=== PATIENT | female | born 1950 | race Caucasian/White ===

== ENCOUNTER 2016-09-19 18:47 | Emergency (ER) | payer BC, MEDICARE ==
[~2016-09-19] VITALS: Ht 160 cm; Wt 104.0 kg
[~2016-09-19 18:47] MED LIST: ALBU0.63 NEB; ALBUAER3 INH; OXYGENTANK NAS.CANULA; SYMB160A INH; SYNT112T PO; UMEC1INH INH; VERA240T16 PO; XARE15TA PO; XARE20TA PO
[2016-09-19 18:54] VITALS: BP 178/98; PULSE 74; RESP 28; TEMP 99.8; O2SAT 61; O2SAT 91
[2016-09-19] MEDS: RESP: ALBUTEROL 2.5 MG/IPRATROPIUM 0.5 MG NEB (SCH) INH (19:07)
--- NOTE | 2016-09-19 19:15 | PD ---
HPI Chief Complaint: Respiratory Distress Time Seen by Provider: 19:04 Travel History International Travel<30 days: No Contact w/Intl Traveler<30days: No Traveled to known affect area: No History of Present Illness HPI The patient is a 66-year-old female with a history of slight COPD who complains of shortness of breath since yesterday. She was put on Xarelto 6 weeks ago for multiple pulmonary emboli. She was doing fine until today when she suffered increasing shortness of breath. She states she has never been like this before. She was seen yesterday at an urgent care center and given a course of prednisone and Z-Galen. She denies any fever. She does not get oxygen at home. She used her nebulizer machine at home with both ipratropium and albuterol without significant relief. PFSH Past Medical History Asthma: Yes Cancer: No Cardiovascular Problems: Yes High Cholesterol: Yes COPD: Yes Endocrine: Yes Genitourinary: No Hypertension: Yes Immune Disorder: No Inguinal Hernia: Yes Musculoskeletal: No Neurologic: No Psychiatric: No Reproductive: No Respiratory: Yes Thyroid Disease: Yes (HYPOTHYROIDISM) Menopausal: Yes Past Surgical History Genitourinary Surgery: Yes (URETHRAL DIVERTICULUM 1981) Tonsillectomy: Yes Social History Alcohol Use: No Tobacco Use: No Substance Use: No Allergies-Medications (Allergen,Severity, Reaction): Coded Allergies: Bee Sting (Verified Allergy, Severe, Anaphylaxis, 09/19/16) Hctz (Verified Allergy, Severe, SEVERELY LOW POTASSIUM, 09/19/16) SHIVAM Inhibitors (Verified Allergy, Intermediate, COUGH, 09/19/16) Beta Blockers (Verified Allergy, Intermediate, CARDIAC ARRYTHMIA, 09/19/16) Penicillin (Verified Allergy, Intermediate, RASH, 09/19/16) Reported Meds & Prescriptions Reported Meds & Active Scripts Active Xarelto (Rivaroxaban) 20 Mg Tab 20 Mg PO DAILY Start after finishing 20 days of the xarelto 15 mg twice daily dosing. Reported Incruse Ellipta Inh (Umeclidinium [place] Inh) 0.0625 Mg/Act Inh 62.5 Mcg INH DAILY Albuterol Neb (Albuterol Sulfate) 0.63 Mg/3 Ml Neb 0.63 Mg NEB Q4HR NEB PRN Proair Hfa 8.5 GM Inh (Albuterol Sulfate) 90 Mcg/Act Aer 2 Puff INH Q4-6H PRN 108 mcg/actuation Symbicort Inh (Budesonide/Formoterol Fumarate) 160-4.5 Mcg/Act Aero 2 Puff INH Q12HR Synthroid (Levothyroxine Sodium) 112 Mcg Tab 112 Mcg PO DAILY Verapamil SR (Verapamil HCl) 240 Mg Tab 240 Mg PO DAILY Review of Systems Except as stated in HPI: all other systems reviewed are Neg Physical Exam Narrative GENERAL: The patient is alert, oriented 3 in moderate respiratory distress. Her vital signs show temperature 99.8, respiratory rate of 28, blood pressure 178/98 and oximetry 91% on room air. The oximetry increased to 95% on 2 L nasal cannula. SKIN: Warm and dry. HEAD: Atraumatic. Normocephalic. EYES: Pupils equal and round. No scleral icterus. No injection or drainage. ENT: No nasal bleeding or discharge. Mucous membranes pink and moist. NECK: Trachea midline. No JVD. CARDIOVASCULAR: Regular rate and rhythm. No murmur appreciated. RESPIRATORY: No accessory muscle use. Bilateral wheezes are heard in all lung burrell. Breath sounds equal bilaterally. GASTROINTESTINAL: Abdomen soft, non-tender, nondistended. Hepatic and splenic margins not palpable. MUSCULOSKELETAL: No obvious deformities. No clubbing. No cyanosis. No edema. NEUROLOGICAL: Awake and alert. No obvious cranial nerve deficits. Motor grossly within normal limits. Normal speech. PSYCHIATRIC: Appropriate mood and affect; insight and judgment normal. Data Data Last Documented VS Vital Signs Date Time Temp Pulse Resp B/P Pulse Ox O2 Delivery O2 Flow Rate FiO2 09/19/16 21:05 Nasal Cannula 2 09/19/16 20:19 95 09/19/16 20:10 89 24 152/84 09/19/16 18:54 99.8 Orders Albuterol-Ipratropium Neb (Duoneb Neb) (09/19/16 19:00) Chest, Pa & Lat (09/19/16 19:04) Complete Blood Count With Diff (09/19/16 19:16) Comprehensive Metabolic Panel (09/19/16 19:16) B-Type Natriuretic Peptide (09/19/16 19:16) Magnesium (Mg) (09/19/16 19:16) Arterial Blood Gas (Abg) (09/19/16 19:16) Urinalysis - C+S If Indicated (09/19/16 19:16) Iv Access Insert/Monitor (09/19/16 19:16) Ecg Monitoring (09/19/16 19:16) Oximetry (09/19/16 19:16) Oxygen Administration (09/19/16 19:16) Sodium Chloride 0.9% Flush (Ns Flush) (09/19/16 19:30) Electrocardiogram (09/19/16 19:16) Methylprednisolone So Succ Inj (Solumedr (09/19/16 19:30) Albuterol-Ipratropium Neb (Duoneb Neb) (09/19/16 20:30) Labs Laboratory Tests Test 09/19/16 09/19/16 19:20 19:45 White Blood Count 9.7 TH/MM3 Red Blood Count 4.60 MIL/MM3 Hemoglobin 13.3 GM/DL Hematocrit 38.6 % Mean Corpuscular Volume 83.9 FL Mean Corpuscular Hemoglobin 28.9 PG Mean Corpuscular Hemoglobin 34.4 % Concent Red Cell Distribution Width 15.5 % Platelet Count 287 TH/MM3 Mean Platelet Volume 8.5 FL Neutrophils (%) (Auto) 79.4 % Lymphocytes (%) (Auto) 13.4 % Monocytes (%) (Auto) 6.5 % Eosinophils (%) (Auto) 0.0 % Basophils (%) (Auto) 0.7 % Neutrophils # (Auto) 7.7 TH/MM3 Lymphocytes # (Auto) 1.3 TH/MM3 Monocytes # (Auto) 0.6 TH/MM3 Eosinophils # (Auto) 0.0 TH/MM3 Basophils # (Auto) 0.1 TH/MM3 CBC Comment DIFF FINAL Differential Comment Sodium Level 141 MEQ/L Potassium Level 4.5 MEQ/L Chloride Level 104 MEQ/L Carbon Dioxide Level 26.9 MEQ/L Anion Gap 10 MEQ/L Blood Urea Nitrogen 24 MG/DL Creatinine 1.00 MG/DL Estimat Glomerular Filtration 55 ML/MIN Rate Random Glucose 101 MG/DL Calcium Level 8.9 MG/DL Magnesium Level 2.3 MG/DL Total Bilirubin 0.4 MG/DL Aspartate Amino Transf 9 U/L (AST/SGOT) Alanine Aminotransferase 17 U/L (ALT/SGPT) Alkaline Phosphatase 89 U/L B-Type Natriuretic Peptide 72 PG/ML Total Protein 7.6 GM/DL Albumin 3.7 GM/DL Blood Gas Puncture Site RT BRACHIAL Blood Gas Patient Temperature 98.6 Blood Gas HCO3 22 mmol/L Blood Gas Base Excess -2.2 mmol/L Blood Gas Oxygen Saturation 93 % Arterial Blood pH 7.41 Arterial Blood Partial 35 mmHG Pressure CO2 Arterial Blood Partial 81 mmHG Pressure O2 Arterial Blood Oxygen Content 17.5 Vol % Arterial Blood 1.6 % Carboxyhemoglobin Arterial Blood Methemoglobin 1.4 % Blood Gas Hemoglobin 13.4 G/DL Oxygen Delivery Device ROOM AIR Blood Gas Inspired Oxygen 21 % MDM Medical Decision Making Medical Screen Exam Complete: Yes Emergency Medical Condition: Yes Medical Record Reviewed: Yes Interpretation(s) The complete metabolic profile shows a BUN of 24, GFR of 55 but is otherwise unremarkable. Magnesium level is normal and the BNP is normal. The CBC is normal except for 79% neutrophils. The chest x-ray shows hyperinflation consistent with COPD/asthma and minimal bibasilar subsegmental atelectasis but no infiltrate is identified. The blood gases on room air show pH 7.41, CO2 35, PO2 81 with O2 sat 93%. EKG shows sinus rhythm rate of [address] elevation or depression. Differential Diagnosis COPD with acute exacerbation, hypoxemia, pneumonia, bronchitis, exacerbation of pulmonary emboli Narrative Course Is now a 821 PM and the patient feels much better. She does want to go home. Except for a slightly low CO2, her blood gases are normal. The chest x-ray does not show any acute infiltrate. Auscultation of the patient's lungs at this time show only a few wheezes. She will get 1 more DuoNeb treatment and then she will be able to go home. She will continue the prednisone course in the Zithromax that was given to her at the urgent care center yesterday. She is to follow-up with her primary care physician next week. Diagnosis Primary Impression: COPD with acute exacerbation Additional Instructions: As we discussed, if you get worse, please return to emergency department. Follow-up with your primary care physician next week. Med/Other Pt SpecificInfo: No Change to Meds Disposition: 01 DISCHARGE HOME Condition: Stable Leandro Gifford MD Sep 19, 2016 19:15
[2016-09-19] MEDS ORDERED: methylPREDNISolone SOD SUCC 125 MG/2 ML VIAL IVP ONE (19:30)
[2016-09-19] MEDS ORDERED: SODIUM CHLORIDE 0.9% FLUSH 5 ML FLUSH IVF PRN (19:30)
[2016-09-19 19:38] LABS: AUTOMATED NEUTROPHIL # 7.7 TH/MM3 (1.8-7.7); BASOPHIL # 0.1 TH/MM3 (0-0.2); BASOPHIL % 0.7 % (0.0-2.0); HEMATOCRIT 38.6 % (35.0-46.0); HEMO FLAGS DIFF FINAL; LYMPH % 13.4 % (9.0-44.0); LYMPHOCYTE # 1.3 TH/MM3 (1.0-4.8); MEAN CELL VOLUME 83.9 FL (80.0-100.0); MEAN CORPUSCULAR HEMOGLOBIN 28.9 PG (27.0-34.0); MEAN CORPUSCULAR HGB CONC 34.4 % (32.0-36.0); MONO % 6.5 % (0.0-8.0); NEUT % 79.4 % (16.0-70.0); PLATELET COUNT 287 TH/MM3 (150-450); RED CELL DISTRIBUTION WIDTH 15.5 % (11.6-17.2); WHITE BLOOD COUNT 9.7 TH/MM3 (4.0-11.0)
[2016-09-19 19:46] LABS: CHLORIDE 104 MEQ/L (98-107); POTASSIUM 4.5 MEQ/L (3.5-5.1); SODIUM (NA) 141 MEQ/L (136-145)
[2016-09-19 19:49] LABS: ANION GAP 10 MEQ/L (5-15); BICARBONATE 26.9 MEQ/L (21.0-32.0); BLOOD UREA NITROGEN 24 MG/DL (7-18); MAGNESIUM 2.3 MG/DL (1.5-2.5)
[2016-09-19 19:52] LABS: ALT (GPT) 17 U/L (10-53); AST (GOT) 9 U/L (15-37); GLOMERULAR FILTRATION RATE 55 ML/MIN (>89)
[2016-09-19 19:54] LABS: BLOOD GAS BASE EXCESS -2.2 mmol/L (-2-2); BLOOD GAS CARBOXYHEMOGLOBIN 1.6 % (0-4); BLOOD GAS HCO3 22 mmol/L (22-26); BLOOD GAS METHEMOGLOBIN 1.4 % (0-2); BLOOD GAS O2 HGB SATURATION 93 % (90-100); BLOOD GAS OXYGEN CONTENT 17.5 Vol % (12.0-20.0); BLOOD GAS PCO2 35 mmHG (38-42); BLOOD GAS PO2 81 mmHG (61-120); BLOOD GAS TOTAL HGB 13.4 G/DL (12.0-16.0); CRITICAL VALUE NO; DRAW SITE RT BRACHIAL; FIO2 21 %; NUMBER OF ARTERIAL PUNCTURES 1; OXYGEN DEVICE ROOM AIR; STAT YES; TEMP CORR TO 98.6
[2016-09-19 19:54] LABS: TOTAL BILIRUBIN ADULT 0.4 MG/DL (0.2-1.0)
[2016-09-19 19:55] LABS: ALKALINE PHOSPHATASE 89 U/L (45-117)
--- NOTE | 2016-09-19 19:58 | RADHPO ---
EXAM DATE/TIME: 09/19/2016 19:39 [facility] COMPARISON: CHEST SINGLE AP, August 07, 2016, 2:51. INDICATIONS : Shortness of breath. MEDICAL HISTORY : Chronic obstructive pulmonary disease. Hypothyroidism. Hypertension. Hernia, inguinal. Asthma. SURGICAL HISTORY : None. ENCOUNTER: Initial ACUITY: 1 day PAIN SCORE: 5/10 LOCATION: Bilateral chest FINDINGS: PA and lateral views of the chest demonstrates hyperinflation which can be seen with CO PD. Minimal bibasilar subsegmental atelectasis. No infiltrates are seen. Heart is normal in size. T he mediastinal contours are unremarkable. Osseous structures are intact. CONCLUSION: Hyperinflation which can be seen with COPD/asthma. Minimal bibasilar subsegmenta l atelectasis. Raymond Malhotra MD on September 19, 2016 at 19:54 Board Certified Radiologist. This report was verified electronically.
[2016-09-19 20:10] VITALS: BP 152/84; PULSE 89; RESP 24; O2SAT 96
[2016-09-19] MEDS ORDERED: RESP: ALBUTEROL 2.5 MG/IPRATROPIUM 0.5 MG NEB (SCH) INH ONE (20:30)
[2016-09-19 21:05] VITALS: BP 165/85; PULSE 112; RESP 20; O2SAT 92
[2016-09-19 23:01] VITALS: BP 172/78
--- NOTE | 2016-09-21 07:01 | EKG ---
Date Performed: 09/19/2016 Time Performed: 18:57:18 PTAGE: 66 years EKG: Sinus rhythm with PVC(s) Inferior T wave changes are nonspecific Borderline ECG PREVIOUS TRACING : 08/07/2016 02.16 Compared to prior tracing no significant change DOCTOR: Bryan Berger Interpretating Date/Time 09/21/2016 06:59:16
== END 2016-09-19 23:15 | disposition home or self-care (01) ==
LOC: PHED 18:47
DX: J44.1 Chronic obstructive pulmonary disease with (acute) exacerbation (principal); Z86.711 Personal history of pulmonary embolism; Z79.01 Long term (current) use of anticoagulants; E78.00 Pure hypercholesterolemia, unspecified; I10 Essential (primary) hypertension; E03.9 Hypothyroidism, unspecified
CPT/HCPCS: 36600; 71020; 80053; 82805; 83735; 83880; 85025; 93005; 94640; 94664; 96374; 99285; J2930

== ENCOUNTER 2016-09-25 12:26 | Inpatient (IN) | payer MEDICARE ==
[~2016-09-25] VITALS: Ht 160 cm; Wt 104.5 kg
[2016-09-25] VITALS (9 sets, daily range): BP systolic 169–206; BP diastolic 87–101; PULSE 73–93; RESP 20; TEMP 98.2–99.5; O2SAT 88–95
[~2016-09-25 12:26] MED LIST changes: -OXYGENTANK NAS.CANULA; -XARE15TA PO
[2016-09-25] MEDS ORDERED: methylPREDNISolone SOD SUCC 125 MG/2 ML VIAL IVP ONE (12:45)
[2016-09-25] MEDS ORDERED: RESP: BUDESONIDE 0.5 MG/2 ML NEB NEB ONE (12:45)
[2016-09-25] MEDS ORDERED: SODIUM CHLORIDE 0.9% FLUSH 5 ML FLUSH IVF PRN ×2 (12:45→15:15)
--- NOTE | 2016-09-25 12:49 | PD ---
HPI Chief Complaint: Respiratory Symptoms Time Seen by Provider: 12:45 Travel History International Travel<30 days: No Contact w/Intl Traveler<30days: No Traveled to known affect area: No History of Present Illness HPI Patient is a 66-year-old female presenting in the department for evaluation of shortness of breath. Patient states it's gotten progressively worse over the last week, she's been to urgent care center as well as this emergency department. She was prescribed azithromycin, steroids, doxycycline. She reports a history of asthma and states she's been compliant with her treatment. She had recently been diagnosed with bilateral pulmonary embolisms and is currently taking swell to. She reports compliance with this medication. Patient's past medical history includes hypertension as well. PFSH Past Medical History Hx Anticoagulant Therapy: Yes (XARELTO ) Asthma: Yes Cancer: No Cardiovascular Problems: Yes High Cholesterol: Yes COPD: Yes Deep Vein Thrombosis: Yes (pe) Endocrine: Yes Genitourinary: No Hypertension: Yes Immune Disorder: No Inguinal Hernia: Yes Musculoskeletal: No Neurologic: No Psychiatric: No Reproductive: No Respiratory: Yes Thyroid Disease: Yes (HYPOTHYROIDISM) ?: Not Menopausal: Yes Past Surgical History Genitourinary Surgery: Yes (URETHRAL DIVERTICULUM 1981) Tonsillectomy: Yes Other Surgery: Yes Social History Alcohol Use: Yes (occ) Tobacco Use: No Substance Use: No Allergies-Medications (Allergen,Severity, Reaction): Coded Allergies: Bee Sting (Verified Allergy, Severe, Anaphylaxis, 09/25/16) Hctz (Verified Allergy, Severe, SEVERELY LOW POTASSIUM, 09/25/16) SHIVAM Inhibitors (Verified Allergy, Intermediate, COUGH, 09/25/16) Beta Blockers (Verified Allergy, Intermediate, CARDIAC ARRYTHMIA, 09/25/16) Penicillin (Verified Allergy, Intermediate, RASH, 09/25/16) Reported Meds & Prescriptions Reported Meds & Active Scripts Active Xarelto (Rivaroxaban) 20 Mg Tab 20 Mg PO DAILY Start after finishing 20 days of the xarelto 15 mg twice daily dosing. Reported Vibramycin (Doxycycline Hyclate) 100 Mg Cap 100 Mg PO BID Doxycycline 40 Mg Cap 40 Mg PO DAILY Prednisone 20 Mg Tab 60 Mg PO DAILY Take 40 mg (2 tablets) daily for 5 days Incruse Ellipta Inh (Umeclidinium [place] Inh) 0.0625 Mg/Act Inh 62.5 Mcg INH DAILY Albuterol Neb (Albuterol Sulfate) 0.63 Mg/3 Ml Neb 0.63 Mg NEB Q4HR NEB PRN Proair Hfa 8.5 GM Inh (Albuterol Sulfate) 90 Mcg/Act Aer 2 Puff INH Q4-6H PRN 108 mcg/actuation Symbicort Inh (Budesonide/Formoterol Fumarate) 160-4.5 Mcg/Act Aero 2 Puff INH Q12HR Synthroid (Levothyroxine Sodium) 112 Mcg Tab 112 Mcg PO DAILY Verapamil SR (Verapamil HCl) 240 Mg Tab 240 Mg PO DAILY Review of Systems Except as stated in HPI: all other systems reviewed are Neg General / Constitutional: No: Fever, Chills HENT: No: Headaches, Lightheadedness Cardiovascular: Positive: Diaphoresis, No: Chest Pain or Discomfort Respiratory: Positive: Cough, Shortness of Breath, Wheezing, Orthopnea, Pleuritic Pain Gastrointestinal: No: Nausea, Vomiting, Abdominal Pain Musculoskeletal: No: Myalgias Neurologic: Positive: Weakness, No: Change in Mentation Physical Exam Narrative GENERAL: Obese, well-developed, alert female. SKIN: Warm and dry. Skin is flushed, patient is diaphoretic. HEAD: Atraumatic. Normocephalic. EYES: Pupils equal and round. No scleral icterus. No injection or drainage. ENT: No nasal bleeding or discharge. Mucous membranes pink and moist. NECK: Trachea midline. No JVD. CARDIOVASCULAR: Regular rate and rhythm. No murmur appreciated. RESPIRATORY: Tachypneic, increased work of breathing, significant expiratory wheezing noted throughout lung burrell. GASTROINTESTINAL: Abdomen soft, non-tender, nondistended. Hepatic and splenic margins not palpable. MUSCULOSKELETAL: No obvious deformities. No clubbing. No cyanosis. 1+ edema to bilateral lower extremities. NEUROLOGICAL: Awake and alert. No obvious cranial nerve deficits. Motor grossly within normal limits. Normal speech. PSYCHIATRIC: Appropriate mood and affect; insight and judgment normal. Data Data Last Documented VS Vital Signs Date Time Temp Pulse Resp B/P Pulse Ox O2 Delivery O2 Flow Rate FiO2 09/25/16 14:48 83 20 206/94 93 Nasal Cannula 3 09/25/16 12:30 99.5 Orders Complete Blood Count With Diff (09/25/16 12:39) Comprehensive Metabolic Panel (09/25/16 12:39) B-Type Natriuretic Peptide (09/25/16 12:39) Magnesium (Mg) (09/25/16 12:39) Ckmb (Isoenzyme) Profile (09/25/16 12:39) Troponin I (09/25/16 12:39) Arterial Blood Gas (Abg) (09/25/16 12:39) Iv Access Insert/Monitor (09/25/16 12:39) Electrocardiogram (09/25/16 12:39) Ecg Monitoring (09/25/16 12:39) Oximetry (09/25/16 12:39) Oxygen Administration (09/25/16 12:39) Chest, Pa & Lat (09/25/16 12:39) Ct Pulmonary Angiogram (09/25/16 12:39) Sodium Chloride 0.9% Flush (Ns Flush) (09/25/16 12:45) Methylprednisolone So Succ Inj (Solumedr (09/25/16 12:45) Albuterol-Ipratropium Neb (Duoneb Neb) (09/25/16 12:45) Budesonide Neb (Pulmicort Respule Neb) (09/25/16 12:45) CKMB (09/25/16 13:00) CKMB% (09/25/16 13:00) Act Partial Throm Time (Ptt) (09/25/16 13:35) Prothrombin Time / Inr (Pt) (09/25/16 13:35) Iohexol 350 Inj (Omnipaque 350 Inj) (09/25/16 14:24) Pneumococcal Urinary Antigen (09/25/16 14:28) Influenzae A/B Antigen (09/25/16 14:28) Legionella Urinary Antigen (09/25/16 14:28) Sputum Culture And Gram Stain (09/25/16 14:28) Guaifen-Cod 200-20 Mg/10ml Liq (Robituss (09/25/16 14:30) Admit Order (Ed Use Only) (09/25/16 15:02) Labs Laboratory Tests Test 09/25/16 09/25/16 12:47 13:00 Blood Gas Puncture Site LT RADIAL Blood Gas Patient Temperature 98.6 Blood Gas HCO3 24 mmol/L Blood Gas Base Excess 0.8 mmol/L Blood Gas Oxygen Saturation 94 % Arterial Blood pH 7.44 Arterial Blood Partial 36 mmHG Pressure CO2 Arterial Blood Partial 83 mmHG Pressure O2 Arterial Blood Oxygen Content 17.6 Vol % Arterial Blood 1.6 % Carboxyhemoglobin Arterial Blood Methemoglobin 1.3 % Blood Gas Hemoglobin 13.3 G/DL Oxygen Delivery Device NASAL CANNULA Blood Gas Liter Flow 2 L/M White Blood Count 16.4 TH/MM3 Red Blood Count 4.68 MIL/MM3 Hemoglobin 13.2 GM/DL Hematocrit 39.3 % Mean Corpuscular Volume 84.0 FL Mean Corpuscular Hemoglobin 28.2 PG Mean Corpuscular Hemoglobin 33.6 % Concent Red Cell Distribution Width 15.1 % Platelet Count 364 TH/MM3 Mean Platelet Volume 8.3 FL Neutrophils (%) (Auto) 73.2 % Lymphocytes (%) (Auto) 16.5 % Monocytes (%) (Auto) 7.5 % Eosinophils (%) (Auto) 0.4 % Basophils (%) (Auto) 2.4 % Neutrophils # (Auto) 12.0 TH/MM3 Lymphocytes # (Auto) 2.7 TH/MM3 Monocytes # (Auto) 1.2 TH/MM3 Eosinophils # (Auto) 0.1 TH/MM3 Basophils # (Auto) 0.4 TH/MM3 CBC Comment DIFF FINAL Differential Comment Prothrombin Time 14.1 SEC Prothromb Time International 1.3 RATIO Ratio Activated Partial 28.9 SEC Thromboplast Time Sodium Level 140 MEQ/L Potassium Level 3.8 MEQ/L Chloride Level 104 MEQ/L Carbon Dioxide Level 26.3 MEQ/L Anion Gap 10 MEQ/L Blood Urea Nitrogen 22 MG/DL Creatinine 0.93 MG/DL Estimat Glomerular Filtration 60 ML/MIN Rate Random Glucose 83 MG/DL Calcium Level 8.5 MG/DL Magnesium Level 2.2 MG/DL Total Bilirubin 0.5 MG/DL Aspartate Amino Transf 7 U/L (AST/SGOT) Alanine Aminotransferase 17 U/L (ALT/SGPT) Alkaline Phosphatase 79 U/L Total Creatine Kinase 132 U/L Creatine Kinase MB 1.0 NG/ML Troponin I LESS THAN 0.02 NG/ML B-Type Natriuretic Peptide 64 PG/ML Total Protein 7.4 GM/DL Albumin 3.4 GM/DL MDM Medical Decision Making Medical Screen Exam Complete: Yes Emergency Medical Condition: Yes Interpretation(s) Vital Signs Date Time Temp Pulse Resp B/P Pulse Ox O2 Delivery O2 Flow Rate FiO2 09/25/16 12:30 99.5 92 20 190/101 92 Differential Diagnosis COPD exacerbation versus bronchitis versus pneumonia versus pulmonary embolism versus other Narrative Course Patient is 66-year-old female presenting to emergency Department with increasing shortness of breath over the last week. Patient has been on azithromycin and doxycycline as well as a steroid pack and nebulizer treatments with no improvement of her symptoms. The only diagnosis of pulmonary embolisms and reports compliance with her anticoagulation., Imaging, medications ordered and pending. Patient placed on O2 at 2 L, ABG ordered, respiratory at bedside. Chest x-ray shows no acute disease, a CT pulmonary angiogram negative for pulmonary embolism. CBC shows a mildly elevated white count with left shift. This could be attributed partially to recent steroid use. Chemistry shows a mildly elevated BUN at 22, troponin is negative, BNP is 64. Patient reports improvement in her symptoms however she is still on oxygen, and is maintaining more of a tripod position in order to breathe easier. At this time patient has attempted outpatient therapy and failed. She was hypoxic on arrival, it would benefit her to be admitted under observation at minimum to optimize respiratory status. Dr. Ledesma accepted admission. Patient is agreeable. Diagnosis Primary Impression: COPD with acute exacerbation Additional Impression: Hypoxia Admitting Information Admitting Physician Requests: Admit Condition: Stable Sarah Carrion Sep 25, 2016 12:49
[2016-09-25] MEDS: RESP: ALBUTEROL 2.5 MG/IPRATROPIUM 0.5 MG NEB (SCH) INH ×2 (12:51→19:30)
[2016-09-25 12:55] LABS: BLOOD GAS BASE EXCESS 0.8 mmol/L (-2-2); BLOOD GAS CARBOXYHEMOGLOBIN 1.6 % (0-4); BLOOD GAS HCO3 24 mmol/L (22-26); BLOOD GAS METHEMOGLOBIN 1.3 % (0-2); BLOOD GAS O2 HGB SATURATION 94 % (90-100); BLOOD GAS OXYGEN CONTENT 17.6 Vol % (12.0-20.0); BLOOD GAS PCO2 36 mmHG (38-42); BLOOD GAS PO2 83 mmHG (61-120); BLOOD GAS TOTAL HGB 13.3 G/DL (12.0-16.0); CRITICAL VALUE NO; OXYGEN DEVICE NASAL CANNULA; TEMP CORR TO 98.6
[2016-09-25 12:56] LABS: DRAW SITE LT RADIAL; LITER FLOW 2 L/M; NUMBER OF ARTERIAL PUNCTURES 1; STAT YES; ULNAR PULSE PRESENT
[2016-09-25] MEDS ORDERED: PRED20 PO (13:05)
[2016-09-25] MEDS ORDERED: VIBR100C PO (13:05)
[2016-09-25] MEDS ORDERED: DOXY1CAP74 PO (13:05)
[2016-09-25 13:08] LABS: BASOPHIL # 0.4 TH/MM3 (0-0.2); BASOPHIL % 2.4 % (0.0-2.0); EOSINOPHIL # 0.1 TH/MM3 (0-0.4); EOSINOPHIL % 0.4 % (0.0-4.0); HEMATOCRIT 39.3 % (35.0-46.0); LYMPH % 16.5 % (9.0-44.0); LYMPHOCYTE # 2.7 TH/MM3 (1.0-4.8); MEAN CORPUSCULAR HEMOGLOBIN 28.2 PG (27.0-34.0); MEAN CORPUSCULAR HGB CONC 33.6 % (32.0-36.0); MONO % 7.5 % (0.0-8.0); NEUT % 73.2 % (16.0-70.0); PLATELET COUNT 364 TH/MM3 (150-450); RED BLOOD COUNT 4.68 MIL/MM3 (4.00-5.30); RED CELL DISTRIBUTION WIDTH 15.1 % (11.6-17.2); WHITE BLOOD COUNT 16.4 TH/MM3 (4.0-11.0)
[2016-09-25 13:10] LABS: HEMO FLAGS DIFF FINAL
[2016-09-25 13:16] LABS: CHLORIDE 104 MEQ/L (98-107); POTASSIUM 3.8 MEQ/L (3.5-5.1); SODIUM (NA) 140 MEQ/L (136-145)
[2016-09-25 13:22] LABS: ANION GAP 10 MEQ/L (5-15); BICARBONATE 26.3 MEQ/L (21.0-32.0); BLOOD UREA NITROGEN 22 MG/DL (7-18); MAGNESIUM 2.2 MG/DL (1.5-2.5)
[2016-09-25 13:25] LABS: ALT (GPT) 17 U/L (10-53); AST (GOT) 7 U/L (15-37); GLOMERULAR FILTRATION RATE 60 ML/MIN (>89)
[2016-09-25 13:27] LABS: TOTAL BILIRUBIN ADULT 0.5 MG/DL (0.2-1.0)
[2016-09-25 13:28] LABS: ALKALINE PHOSPHATASE 79 U/L (45-117); CREATINE KINASE 132 U/L (26-192)
[2016-09-25 14:12] LABS: APTT (PATIENT) 28.9 SEC (24.3-30.1)
[2016-09-25 14:13] LABS: INTERNATIONAL NORMALIZED RATIO 1.3 RATIO; PROTHROMBIN TIME - PATIENT 14.1 SEC (9.8-11.6)
--- NOTE | 2016-09-25 14:22 | RADHPO ---
EXAM DATE/TIME: 09/25/2016 13:39 [facility] COMPARISON: CHEST PA & LAT, September 19, 2016, 19:39. INDICATIONS : Worsening shortness of breath & cough. Patient was seen here last 09/19/2016. Diagnosed with bilatera l pulmonary emboli 6 weeks ago. MEDICAL HISTORY : Hypercholesterolemia. Deep venous thrombosis. Hypothyroidism. Hypertension. Hernia, inguinal. As thma. Urethral diverticulum. SURGICAL HISTORY : Tonsillectomy. ENCOUNTER: [facility] ACUITY: 1 week PAIN SCORE: 0/10 LOCATION: chest FINDINGS: PA and lateral views of the chest demonstrate the lungs to be symmetrically aerated without evidence of mass, infiltrate or effusion. The cardiomediastinal contours are unremarkable. Osseous structure s are intact. CONCLUSION: No acute disease. Pasquale Sanders MD on September 25, 2016 at 14:20 Board Certified Radiologist. This report was verified electronically.
[2016-09-25] MEDS ORDERED: IOHEXOL 350 MG/ML 10 ML VIAL (for RAD DIAG) IV ONE (14:24)
[2016-09-25] MEDS ORDERED: guaiFENesin/CODEINE SYRUP 200 MG/20 MG/10 ML CUP PO PRN (14:30)
--- NOTE | 2016-09-25 14:31 | RADHPO ---
EXAM DATE/TIME: 09/25/2016 14:11 [facility] COMPARISON: CT PULMONARY ANGIOGRAM, August 07, 2016, 3:43. CHEST PA & LAT, September 25, 2016, 13:39. INDICATIONS : Short of breath and wheezing for one week. IV CONTRAST: 65 cc Omnipaque 350 (iohexol) IV RADIATION DOSE: 21.72 CTDIvol (mGy) MEDICAL HISTORY : Hypertension. Deep venous thrombosis. Chronic obstructive pulmonary disease. SURGICAL HISTORY : History of prior pulmonary emboli. ENCOUNTER: Initial ACUITY: 1 week PAIN SCALE: 0/10 LOCATION: chest TECHNIQUE: Volumetric scanning of the chest was performed using a pulmonary embolism protocol MIP images were re constructed. Using automated exposure control and adjustment of the mA and/or kV according to patien t size, radiation dose was kept as low as reasonably achievable to obtain optimal diagnostic quality images. FINDINGS: PULMONARY ARTERIES: No filling defects are seen in the pulmonary arteries through the segmental level. LUNGS: There is no consolidation or pneumothorax . No concerning pulmonary nodule is visualized. There is u nderlying emphysema. PLEURAE: There is no pleural thickening or pleural effusion. MEDIASTINUM: There is good visualization of the great vessels of the middle mediastinum. No evidence of mediastin al or hilar adenopathy/mass. MUSCULOSKELETAL: Within normal limits for patient age. MISCELLANEOUS: The visualized upper abdominal organs demonstrate no acute abnormality. There is a small to moderate size retrocardiac hiatal hernia. CONCLUSION: 1. No evidence of pulmonary embolism. 2. Underlying emphysema. 3. Small to moderate size retrocardiac hiatal hernia. Pasquale Sanders MD on September 25, 2016 at 14:26 Board Certified Radiologist. This report was verified electronically.
[2016-09-25] MEDS ORDERED: cloNIDine HCL 0.1 MG TAB PO PRN (15:15)
[2016-09-25] MEDS ORDERED: RESP: ALBUTEROL 2.5 MG/IPRATROPIUM 0.5 MG NEB (PRN) ONE (16:03)
[2016-09-25] MEDS: LEVOFLOXACIN 750 MG TAB PO SCH (16:16)
--- NOTE | 2016-09-25 18:43 | HHI.HP ---
[facility] Service [facility] Primary Care Physician Non-Staff Admission Diagnosis COPD exacerbation Diagnoses: (1) COPD with acute exacerbation Travel History International Travel<30 Days: No Contact w/Intl Traveler <30 Da: No Traveled to Known Affected Are: No History of Present Illness This is a pleasant 66 year-old female with a past medical history of asthma/COPD, provoked pulmonary embolism in July 2016 was known to me from previous admission. She presents with a ten-day history of cough, congestion, wheezing and dyspnea. She has been treated outpatient both at an urgent care and presented to this ER about a week ago. She has received Zithromax and prednisone without improvement. She has been using DuoNeb's around the clock without improvement. She does use home oxygen continuously since July 2016. The patient was diagnosed with bilateral pulmonary embolism in July 2016 which was felt to be provoked due to immobility from a recent ankle fracture. She was placed on Xarelto at that time and has been compliant with it. 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 The patient endorses cough and she clear to aquino sputum production today but she feels as if her chest is tight and she cannot get the sputum out. In the emergency department chest x-ray was negative for pneumonia. CTA showed no pulmonary embolism. The patient does have a 15-20 year pack tobacco history but quit more than 20 years ago. Review of Systems Constitutional: DENIES: Fever, Chills Ears, nose, mouth, throat: DENIES: Nasal discharge, Throat pain, Hoarseness Respiratory: COMPLAINS OF: Cough, Wheezing, Sputum production, Shortness of breath Cardiovascular: DENIES: Chest pain, Palpitations Gastrointestinal: DENIES: Abdominal pain, Vomiting Genitourinary: DENIES: Urinary frequency, Dysuria Musculoskeletal: DENIES: Back pain, Neck pain Integumentary: DENIES: Pruritus, Rash Hematologic/lymphatic: DENIES: Lymphadenopathy Neurologic: DENIES: Abnormal gait, Headache Psychiatric: DENIES: Anxiety, Confusion Past Family Social History Past Medical History Hypertension Asthma [id number] smoking history Hypothyroidism Allergies: Coded Allergies: Bee Sting (Verified Allergy, Severe, Anaphylaxis, 2/7/17) Hctz (Verified Allergy, Severe, SEVERELY LOW POTASSIUM, 09/25/16) SHIVAM Inhibitors (Verified Allergy, Intermediate, COUGH, 09/25/16) Beta Blockers (Verified Allergy, Intermediate, CARDIAC ARRYTHMIA, 09/25/16) Penicillin (Verified Allergy, Intermediate, RASH, 09/25/16) Family History reviewed, NC Social History as per HPI Physical Exam Vital Signs Vital Signs Date Time Temp Pulse Resp B/P Pulse Ox O2 Delivery O2 Flow Rate FiO2 09/25/16 16:46 78 20 171/89 93 Nasal Cannula 3 09/25/16 16:44 88 20 177/89 94 Nasal Cannula 2 09/25/16 16:08 93 Nasal Cannula 2.00 09/25/16 14:48 83 20 206/94 93 Nasal Cannula 3 09/25/16 13:11 73 20 184/87 95 Nasal Cannula 3 09/25/16 12:45 88 Nasal Cannula 3 09/25/16 12:45 88 09/25/16 12:30 99.5 92 20 190/101 92 Physical Exam GENERAL: Well-nourished, well-developed obese female patient. SKIN: Warm and dry. HEAD: Normocephalic. EYES: No scleral icterus. No injection or drainage. NECK: Supple, trachea midline. No JVD or lymphadenopathy. CARDIOVASCULAR: Regular rate and rhythm without murmurs, gallops, or rubs. RESPIRATORY: Breath sounds equal bilaterally with diffuse expiratory wheezing bilaterally and mild accessory muscle use on 3 L nasal cannula. GASTROINTESTINAL: Abdomen soft, non-tender, nondistended. EXTREMITIES: No cyanosis, or edema. NEUROLOGICAL: Awake, alert, and oriented x 3. Non-focal. Laboratory Laboratory Tests Test 09/25/16 09/25/16 12:47 13:00 Blood Gas Puncture Site LT RADIAL Blood Gas Patient Temperature 98.6 Blood Gas HCO3 24 Blood Gas Base Excess 0.8 Blood Gas Oxygen Saturation 94 Arterial Blood pH 7.44 Arterial Blood Partial 36 Pressure CO2 Arterial Blood Partial 83 Pressure O2 Arterial Blood Oxygen Content 17.6 Arterial Blood 1.6 Carboxyhemoglobin Arterial Blood Methemoglobin 1.3 Blood Gas Hemoglobin 13.3 Oxygen Delivery Device NASAL CANNULA Blood Gas Liter Flow 2 White Blood Count 16.4 Red Blood Count 4.68 Hemoglobin 13.2 Hematocrit 39.3 Mean Corpuscular Volume 84.0 Mean Corpuscular Hemoglobin 28.2 Mean Corpuscular Hemoglobin 33.6 Concent Red Cell Distribution Width 15.1 Platelet Count 364 Mean Platelet Volume 8.3 Neutrophils (%) (Auto) 73.2 Lymphocytes (%) (Auto) 16.5 Monocytes (%) (Auto) 7.5 Eosinophils (%) (Auto) 0.4 Basophils (%) (Auto) 2.4 Neutrophils # (Auto) 12.0 Lymphocytes # (Auto) 2.7 Monocytes # (Auto) 1.2 Eosinophils # (Auto) 0.1 Basophils # (Auto) 0.4 CBC Comment DIFF FINAL Differential Comment Prothrombin Time 14.1 Prothromb Time International 1.3 Ratio Activated Partial 28.9 Thromboplast Time Sodium Level 140 Potassium Level 3.8 Chloride Level 104 Carbon Dioxide Level 26.3 Anion Gap 10 Blood Urea Nitrogen 22 Creatinine 0.93 Estimat Glomerular Filtration 60 Rate Random Glucose 83 Calcium Level 8.5 Magnesium Level 2.2 Total Bilirubin 0.5 Aspartate Amino Transf 7 (AST/SGOT) Alanine Aminotransferase 17 (ALT/SGPT) Alkaline Phosphatase 79 Total Creatine Kinase 132 Creatine Kinase MB 1.0 Troponin I LESS THAN 0.02 B-Type Natriuretic Peptide 64 Total Protein 7.4 Albumin 3.4 Date/Time Procedure Status Source Growth 09/25/16 16:25 Legionella Antigen Received Urine Clean Catch Pending 09/25/16 16:25 Streptococcus pneumoniae Antigen (M Received Urine Clean Catch Pending 09/25/16 15:45 Influenza Types A,B Antigen (ZORAN) - Final Complete Nasal Washing NEGATIVE FOR FLU A AND B ANTIGEN.... Result Diagram: 09/25/16 1300 09/25/16 1300 Assessment and Plan Assessment and Plan -Acute COPD / asthma exacerbation, failed outpatient treatment. We'll admit for Solu-Medrol IV, will place her on Levaquin. 2 nebs [id number] and cough syrup as needed. Mucinex to help break up the sputum. May need pulmonology consultation here locally if she does not improve as expected. -Bilateral pulmonary embolisms diagnosed in July 2016. Shows resolution on today's CTA. Continue Xarelto for 6 months for the provoked PE. -Hypertension - resume home medications. -Hypothyroidism - resume Synthroid. -DVT prophylaxis with Xarelto. Sudha Lange MD Sep 25, 2016 18:42
[2016-09-25] MEDS: methylPREDNISolone SOD SUCC 125 MG/2 ML VIAL IVP SCH (19:25)
[2016-09-25] MEDS: SODIUM CHLORIDE 0.9% FLUSH 5 ML FLUSH IVF SCH (19:26)
[2016-09-25] MEDS: guaiFENesin E.R. 600 MG TAB PO SCH (19:56)
[2016-09-25] MEDS: hydrALAZINE HCL 25 MG TAB PO SCH (21:45)
[2016-09-25] MEDS: BUDESONIDE-FORMOTEROL 160/4.5 MCG INHALER INH SCH (21:46)
[2016-09-25] MEDS: guaiFENesin/CODEINE SYRUP 200 MG/20 MG/10 ML CUP PO PRN (22:59)
[2016-09-25] MEDS: RESP: ALBUTEROL 2.5 MG/3 ML NEB (PRN) INH (23:04)
[2016-09-26] VITALS (9 sets, daily range): BP systolic 133–186; BP diastolic 76–112; PULSE 80–96; RESP 20–24; TEMP 97–98.4; O2SAT 91–97
[2016-09-26] MEDS: methylPREDNISolone SOD SUCC 125 MG/2 ML VIAL IVP SCH ×2 (00:40→05:24)
[2016-09-26] MEDS: RESP: ALBUTEROL 2.5 MG/3 ML NEB (PRN) INH ×2 (02:34→21:32)
[2016-09-26] MEDS: guaiFENesin/CODEINE SYRUP 200 MG/20 MG/10 ML CUP PO PRN ×3 (05:22→20:53)
[2016-09-26] MEDS: LEVOTHYROXINE SODIUM 112 MCG TAB PO SCH (05:22)
[2016-09-26] MEDS: hydrALAZINE HCL 25 MG TAB PO SCH (05:24)
[2016-09-26] MEDS: RESP: ALBUTEROL 2.5 MG/IPRATROPIUM 0.5 MG NEB (SCH) INH ×4 (07:26→19:19)
[2016-09-26] MEDS: VERAPAMIL HCL 240 MG SUSTAINED RELEASE TAB PO SCH (09:20)
[2016-09-26] MEDS: RIVAROXABAN 20 MG TAB PO SCH (09:20)
[2016-09-26] MEDS: guaiFENesin E.R. 600 MG TAB PO SCH ×2 (09:20→20:52)
[2016-09-26] MEDS: SODIUM CHLORIDE 0.9% FLUSH 5 ML FLUSH IVF SCH ×3 (09:21→20:56)
[2016-09-26] MEDS: BUDESONIDE-FORMOTEROL 160/4.5 MCG INHALER INH SCH ×2 (09:21→20:53)
--- NOTE | 2016-09-26 10:15 | HHI.PR ---
Subjective Remarks Patient seen today in follow-up for increased work of breath a short of breathing secondary to COPD/asthma exacerbation. Patient short of breath with minimal exertion today. Still on antiplatelet for PE found last admission. Patient also has sleep apnea for which she is not using her C Pap; she has no home o2 91 % on room air Objective Vitals Vital Signs Date Time Temp Pulse Resp B/P Pulse Ox O2 Delivery O2 Flow Rate FiO2 09/26/16 08:00 97.8 92 24 162/98 93 09/26/16 07:27 97 Nasal Cannula 2.00 09/26/16 04:00 97.3 93 20 186/112 91 09/26/16 00:00 97.0 92 20 162/104 94 09/25/16 20:00 98.2 93 20 169/93 94 09/25/16 19:30 95 Nasal Cannula 2.00 09/25/16 16:46 78 20 171/89 93 Nasal Cannula 3 09/25/16 16:44 88 20 177/89 94 Nasal Cannula 2 09/25/16 16:08 93 Nasal Cannula 2.00 09/25/16 14:48 83 20 206/94 93 Nasal Cannula 3 09/25/16 13:11 73 20 184/87 95 Nasal Cannula 3 09/25/16 12:45 88 Nasal Cannula 3 09/25/16 12:45 88 09/25/16 12:30 99.5 92 20 190/101 92 I/O 09/25/16 09/25/16 09/25/16 09/26/16 09/26/16 09/26/16 07:00 15:00 23:00 07:00 15:00 23:00 Intake Total 480 ml 720 ml Output Total 800 ml Balance -320 ml 720 ml Intake Oral 480 ml 720 ml Output Urine Total 800 ml # Voids 2 3 # Bowel Movements 0 0 Result Diagram: 09/25/16 1300 09/25/16 1300 Imaging Last Impressions Chest X-Ray 09/25/161238 Signed Impressions: Service Date/Time: Sunday, September 25, 2016 13:39 - CONCLUSION: No acute disease. Pasquale Sanders MD CT Angiography 09/25/16 1239 Signed Impressions: Service Date/Time: Sunday, September 25, 2016 14:11 - CONCLUSION: 1. No evidence of pulmonary embolism. 2. Underlying emphysema. 3. Small to moderate size retrocardiac hiatal hernia. Pasquale Sanders MD Objective Remarks GENERAL: This is a well-nourished, well-developed patient, in no apparent distress. CARDIOVASCULAR: Regular rate and rhythm without murmurs, gallops, or rubs. RESPIRATORY: Decreased air flow bilaterally, upper respiratory sounds GASTROINTESTINAL: Abdomen soft, non-tender, nondistended. Normal active bowel sounds MUSCULOSKELETAL: Extremities without clubbing, cyanosis, or edema. NEURO: Alert & Oriented x4 to person, place, time, situation. Moves all ext x4 A/P Problem List: (1) COPD with acute exacerbation ICD Code: J44.1 Status: Acute Plan: Continue PO steroids, bronchodilators Home CpAP to resume (2) Pulmonary embolism ICD Code: I26.99 Status: Resolved Plan: Remotely, patient will continue her xarelto for treatment, CT shows resolution (3) HTN (hypertension) ICD Code: I10 Status: Acute Plan: Clonidine pen Ptn refuses Hydralazine Assessment and Plan home 1-2 days Maia Hedrick MD Sep 26, 2016 10:15
[2016-09-26] MEDS: LEVOFLOXACIN 750 MG TAB PO SCH (17:27)
[2016-09-26] MEDS: predniSONE 20 MG TAB PO SCH (20:53)
--- NOTE | 2016-09-26 22:55 | EKG ---
Date Performed: 09/25/2016 Time Performed: 13:14:44 PTAGE: 66 years EKG: Sinus rhythm Inferior T wave changes are nonspecific Borderline ECG PREVIOUS TRACING : 09/19/2016 18.57 Compared to prior tracing no significant change DOCTOR: Pa Alvarenga Interpretating Date/Time 09/26/2016 22:53:15
[2016-09-27] VITALS: BP 149/81; PULSE 77; RESP 18; TEMP 97.2; O2SAT 90
[2016-09-27 04:00] VITALS: BP 156/83; PULSE 76; RESP 18; TEMP 97.6; O2SAT 92
[2016-09-27] MEDS: LEVOTHYROXINE SODIUM 112 MCG TAB PO SCH (05:57)
[2016-09-27] MEDS: RESP: ALBUTEROL 2.5 MG/IPRATROPIUM 0.5 MG NEB (SCH) INH (07:36)
[2016-09-27 07:38] VITALS: O2SAT 95
[2016-09-27 08:00] VITALS: BP 172/86; PULSE 86; RESP 24; TEMP 98.7; O2SAT 96
[2016-09-27] MEDS: SODIUM CHLORIDE 0.9% FLUSH 5 ML FLUSH IVF SCH (09:00)
[2016-09-27] MEDS: guaiFENesin E.R. 600 MG TAB PO SCH (09:20)
[2016-09-27] MEDS: BUDESONIDE-FORMOTEROL 160/4.5 MCG INHALER INH SCH (09:20)
[2016-09-27] MEDS: VERAPAMIL HCL 240 MG SUSTAINED RELEASE TAB PO SCH (09:20)
[2016-09-27] MEDS: RIVAROXABAN 20 MG TAB PO SCH (09:20)
[2016-09-27] MEDS: predniSONE 20 MG TAB PO SCH (09:20)
[2016-09-27] MEDS: guaiFENesin/CODEINE SYRUP 200 MG/20 MG/10 ML CUP PO PRN (09:58)
[2016-09-27] MEDS ORDERED: GUAI100S5 PO (10:08)
[2016-09-27] MEDS ORDERED: PRED20 PO (10:08)
[2016-09-27] MEDS ORDERED: LEVA750T PO (10:08)
--- NOTE | 2016-09-27 10:09 | HHI.DCPOC ---
Discharge Care Plan Diagnosis: (1) HTN (hypertension) (2) COPD with acute exacerbation Goals to Promote Your Health * To prevent worsening of your condition and complications * To maintain your health at the optimal level Directions to Meet Your Goals Take your medications as prescribed Follow your dietary instruction Follow activity as directed Keep your appointments as scheduled Take your immunizations and boosters as scheduled If your symptoms worsen call your PCP, if no PCP go to Urgent Care Center or Emergency Room Smoking is Dangerous to Your Health. Avoid second hand smoke Call the 24-hour hour crisis hotline for domestic abuse at Maia Hedrick MD Sep 27, 2016 10:09
--- NOTE | 2016-09-27 10:12 | HHI.DS ---
Discharge Summary Admission Date Sep 25, 2016 at 15:03 Discharge Date: Sep 27, 2016 Admitting Diagnosis COPD exacerbation (1) COPD with acute exacerbation ICD Code: J44.1 (2) Pulmonary embolism ICD Code: I26.99 (3) HTN (hypertension) ICD Code: I10 Procedures none Brief History - From Admission This is a pleasant 66 year-old female with a past medical history of asthma/COPD, provoked pulmonary embolism in July 2016 was known to me from previous admission. She presents with a ten-day history of cough, congestion, wheezing and dyspnea. She has been treated outpatient both at an urgent care and presented to this ER about a week ago. She has received Zithromax and prednisone without improvement. She has been using DuoNeb's around the clock without improvement. She does use home oxygen continuously since July 2016. The patient was diagnosed with bilateral pulmonary embolism in July 2016 which was felt to be provoked due to immobility from a recent ankle fracture. She was placed on Xarelto at that time and has been compliant with it. 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 The patient endorses cough and she clear to aquino sputum production today but she feels as if her chest is tight and she cannot get the sputum out. In the emergency department chest x-ray was negative for pneumonia. CTA showed no pulmonary embolism. The patient does have a 15-20 year pack tobacco history but quit more than 20 years ago. CBC/BMP: 09/25/16 1300 09/25/16 1300 Significant Findings Laboratory Tests Test 09/25/16 09/25/16 12:47 13:00 Arterial Blood pH 7.44 (7.380-7.420) Arterial Blood Partial 36 mmHG (38-42) Pressure CO2 White Blood Count 16.4 TH/MM3 (4.0-11.0) Neutrophils (%) (Auto) 73.2 % (16.0-70.0) Basophils (%) (Auto) 2.4 % (0.0-2.0) Neutrophils # (Auto) 12.0 TH/MM3 (1.8-7.7) Monocytes # (Auto) 1.2 TH/MM3 (0-0.9) Basophils # (Auto) 0.4 TH/MM3 (0-0.2) Prothrombin Time 14.1 SEC (9.8-11.6) Blood Urea Nitrogen 22 MG/DL (7-18) Estimat Glomerular Filtration 60 ML/MIN (>89) Rate Aspartate Amino Transf 7 U/L (15-37) (AST/SGOT) Troponin I LESS THAN 0.02 NG/ML (0.02-0.05) Imaging Last Impressions Chest X-Ray 09/25/169 Signed Impressions: Service Date/Time: Sunday, September 25, 2016 13:39 - CONCLUSION: No acute disease. Pasquale Sanders MD CT Angiography 09/25/161238 Signed Impressions: Service Date/Time: Sunday, September 25, 2016 14:11 - CONCLUSION: 1. No evidence of pulmonary embolism. 2. Underlying emphysema. 3. Small to moderate size retrocardiac hiatal hernia. Pasquale Sanders MD PE at Discharge GENERAL: This is a well-nourished, well-developed patient, in no apparent distress. CARDIOVASCULAR: Regular rate and rhythm without murmurs, gallops, or rubs. RESPIRATORY: Decreased air flow bilaterally, upper respiratory sounds GASTROINTESTINAL: Abdomen soft, non-tender, nondistended. Normal active bowel sounds MUSCULOSKELETAL: Extremities without clubbing, cyanosis, or edema. NEURO: Alert & Oriented x4 to person, place, time, situation. Moves all ext x4 Pt update on day of discharge Patient seen today in follow-up for asthma exacerbation, doing better discharge plans discussed with patient Hospital Course Patient is a 66-year-old female was seen and evaluated for increased work of breathing and shortness of breath with asthma/COPD exacerbation. Patient did well with bronchodilators, steroids and with antibiotics. She did have a previous coronary embolism which appears to have resolved on repeat scans. Patient education was provided and she was discharged Pt Condition on Discharge: Good Discharge Disposition: Discharge Home Discharge Time: > 30 minutes Discharge Instructions DIET: Follow Instructions for: Heart Healthy Diet Activities you can perform: Regular-No Restrictions Follow up Referrals: PCP Follow-up - 1 Week New Medications: Guaifenesin-Codeine Liq (Guaifenesin-Codeine Liq) 100-10 Mg/5 Ml Soln 10 ML PO Q6H PRN cough #60 ML Levofloxacin (Levaquin) 750 Mg Tab 750 MG PO Q24H Infection #5 TAB Prednisone (Prednisone) 20 Mg Tab 20 MG PO BID Take 20 mg twice a day for 3 days then 20 mg daily for 3 days then 10 mg daily for 3 days then stop Asthma Management #12 TAB Continued Medications: Albuterol 8.5 GM Inh (Proair Hfa 8.5 GM Inh) 90 Mcg/Act Aer 2 PUFF INH Q4-6H 108 mcg/actuation PRN SHORTNESS OF BREATH #1 Ref 0 INHALER Albuterol Neb (Albuterol Neb) 0.63 Mg/3 Ml Neb 0.63 MG NEB Q4HR NEB PRN SHORTNESS OF BREATH #25 Ref 0 NEBULE Budesonide-Formoterol Inh (Symbicort Inh) 160-4.5 Mcg/Act Aero 2 PUFF INH Q12HR #1 Ref 0 INHALER Levothyroxine (Synthroid) 112 Mcg Tab 112 MCG PO DAILY Thyroid #30 Ref 0 TAB Prednisone (Prednisone) 20 Mg Tab 60 MG PO DAILY Take 40 mg (2 tablets) daily for 5 days #10 Ref 0 TAB Rivaroxaban (Xarelto) 20 Mg Tab 20 MG PO DAILY Start after finishing 20 days of the xarelto 15 mg twice daily dosing. Blood Clot Prevention #10 Ref 0 TAB Umeclidinium [place] Inh (Incruse Ellipta Inh) 0.0625 Mg/Act Inh 62.5 MCG INH DAILY Treat COPD #1 Ref 0 INHALER Verapamil SR (Verapamil SR) 240 Mg Tab 240 MG PO DAILY #30 Ref 0 TAB Discontinued Medications: Doxycycline (Doxycycline) 40 Mg Cap 40 MG PO DAILY Infection Ref 0 CAP Doxycycline Hyclate (Vibramycin) 100 Mg Cap 100 MG PO BID Infection Ref 0 CAP Maia Hedrick MD Sep 27, 2016 10:12
== END 2016-09-27 11:00 | disposition home or self-care (01) | DRG 191 ==
LOC: PHED 12:26 → PHEDA 15:03 → PH3A 17:27
PROVIDERS: ADMIT Hospitalist; ATTEND Hospitalist
DX: J44.1 Chronic obstructive pulmonary disease with (acute) exacerbation (principal); Z68.41 Body mass index [BMI] 40.0-44.9, adult; Z99.81 Dependence on supplemental oxygen; J45.901 Unspecified asthma with (acute) exacerbation; Z86.711 Personal history of pulmonary embolism; Z79.02 Long term (current) use of antithrombotics/antiplatelets; Z87.891 Personal history of nicotine dependence; G47.30 Sleep apnea, unspecified; Z91.19 Patient's noncompliance with other medical treatment and regimen; R09.02 Hypoxemia; E66.9 Obesity, unspecified; I10 Essential (primary) hypertension; E03.9 Hypothyroidism, unspecified
CPT/HCPCS: 36600; 71020; 71275; 80053; 82550; 82552; 82805; 83735; 83880; 84484; 85025; 85610; 85730; 87449; 87804; 93005; 94640; 94664; 96374; J2930; J7512; J7613; J7626; Q9967

== ENCOUNTER 2017-12-12 22:36 | Inpatient (IN) | payer MEDICARE ==
[2017-12-12] MEDS ORDERED: SODIUM CHLORIDE 0.9% FLUSH 10 ML FLUSH IV FLUSH (22:45)
[2017-12-12] MEDS: methylPREDNISolone SOD SUCC 125 MG/2 ML VIAL IV PUSH (22:48)
[2017-12-12] MEDS: FAMOTIDINE 20 MG/2 ML VIAL IV PUSH (22:49)
[2017-12-12] MEDS: diphenhydrAMINE HCL 50 MG/ML VIAL IVP (22:49)
[2017-12-12] MEDS: SODIUM CHLOR 0.9% 1000 ML INJ 1,000 ML IV (22:49)
[2017-12-12] MEDS: EPINEPHrine HCL (1:1000) 1 MG/ML VIAL IM (22:50)
[2017-12-12] MEDS ORDERED: ETOMIDATE 20 MG/10 ML VIAL (22:53)
[2017-12-12] MEDS ORDERED: ROCURONIUM INJ 50 MG/5 ML VIAL (22:54)
[2017-12-12] MEDS ORDERED: SUCCINYLCHOLINE CHLORIDE 200 MG/10 ML VIAL (22:58)
[2017-12-12] MEDS: ETOMIDATE 20 MG/10 ML VIAL IVP (23:01)
[2017-12-12 23:02] LABS: AUTOMATED NEUTROPHIL # 6.5 TH/MM3 (1.8-7.7); BASOPHIL % 0.6 % (0.0-2.0); EOSINOPHIL % 0.1 % (0.0-4.0); HEMATOCRIT 40.1 % (35.0-46.0); HEMO FLAGS DIFF FINAL; HEMOGLOBIN 13.1 GM/DL (11.6-15.3); LYMPH % 15.2 % (9.0-44.0); LYMPHOCYTE # 1.2 TH/MM3 (1.0-4.8); MEAN CELL VOLUME 86.3 FL (80.0-100.0); MEAN CORPUSCULAR HEMOGLOBIN 28.4 PG (27.0-34.0); MEAN CORPUSCULAR HGB CONC 32.8 % (32.0-36.0); MEAN PLATELET VOLUME 8.3 FL (7.0-11.0); MONOCYTE # 0.1 TH/MM3 (0-0.9); NEUT % 83.1 % (16.0-70.0); PLATELET COUNT 299 TH/MM3 (150-450); RED BLOOD COUNT 4.64 MIL/MM3 (4.00-5.30); RED CELL DISTRIBUTION WIDTH 13.6 % (11.6-17.2); WHITE BLOOD COUNT 7.8 TH/MM3 (4.0-11.0)
[2017-12-12] MEDS: SUCCINYLCHOLINE CHLORIDE 200 MG/10 ML VIAL IV PUSH (23:02)
[2017-12-12] MEDS ORDERED: SODIUM CHLOR 0.9% 1000 ML INJ 1,000 ML IV (23:03)
[2017-12-12] MEDS: PROPOFOL 500 MG/50 ML BTL IV (23:05)
[2017-12-12] MEDS: PROPOFOL 1000 MG/100 ML INJ 100 ML (23:05)
[2017-12-12] MEDS ORDERED: SODIUM CHLORIDE 0.9% FLUSH 10 ML FLUSH IVF (23:15)
[2017-12-12] MEDS: ROCURONIUM INJ 50 MG/5 ML VIAL IV (23:20)
[2017-12-12] MEDS ORDERED: fentaNYL CITRATE 250 MCG/5 ML AMP IV PUSH (23:30)
[2017-12-12 23:58] LABS: BLOOD GAS BASE EXCESS -5.1 mmol/L (-2-2); BLOOD GAS CARBOXYHEMOGLOBIN 1.1 % (0-4); BLOOD GAS HCO3 21 mmol/L (22-26); BLOOD GAS METHEMOGLOBIN 1.2 % (0-2); BLOOD GAS O2 HGB SATURATION 93 % (90-100); BLOOD GAS OXYGEN CONTENT 16.6 Vol % (12.0-20.0); BLOOD GAS PCO2 49 mmHG (38-42); BLOOD GAS PO2 95 mmHG (61-120); BLOOD GAS TOTAL HGB 12.5 G/DL (12.0-16.0); CHLORIDE 104 MEQ/L (98-107); POTASSIUM 3.8 MEQ/L (3.5-5.1); SODIUM (NA) 136 MEQ/L (136-145); TEMP CORR TO 98.6
[2017-12-12 23:59] LABS: CRITICAL VALUE YES; DRAW SITE RT RADIAL; FIO2 40 %; NUMBER OF ARTERIAL PUNCTURES 1; OXYGEN DEVICE VENTILATOR; STAT YES; ULNAR PULSE PRESENT; VENT SETTINGS PRVC/AC
[2017-12-13 00:01] LABS: CALCIUM 8.6 MG/DL (8.5-10.1)
[2017-12-13 00:02] LABS: ALBUMIN 3.4 GM/DL (3.4-5.0); ANION GAP 9 MEQ/L (5-15); BICARBONATE 23.5 MEQ/L (21.0-32.0); BLOOD UREA NITROGEN 15 MG/DL (7-18); GLUCOSE,RANDOM 122 MG/DL (74-106)
[2017-12-13 00:05] LABS: ALT (GPT) 16 U/L (10-53); AST (GOT) 12 U/L (15-37); CREATININE 0.69 MG/DL (0.50-1.00); GLOMERULAR FILTRATION RATE 85 ML/MIN (>89)
[2017-12-13 00:06] LABS: TOTAL BILIRUBIN ADULT 0.2 MG/DL (0.2-1.0); TOTAL PROTEIN 7.7 GM/DL (6.4-8.2)
[2017-12-13 00:07] LABS: ALKALINE PHOSPHATASE 88 U/L (45-117)
[2017-12-13] MEDS ORDERED: BISACODYL 10 MG SUPP RECTAL (00:30)
[2017-12-13] MEDS ORDERED: LACTULOSE SYRUP 20 GM/30 ML CUP PO (00:30)
[2017-12-13] MEDS ORDERED: MAGNESIUM HYDROXIDE SUSP 30 ML CUP PO (00:30)
[2017-12-13] MEDS ORDERED: SODIUM CHLORIDE 0.9% FLUSH 10 ML FLUSH IV FLUSH (00:30)
[2017-12-13] MEDS: NURSING INFORMATION XX (00:30)
[2017-12-13] MEDS ORDERED: PROPOFOL 1000 MG/100 ML INJ 100 ML IV (00:30)
[2017-12-13] MEDS ORDERED: SENNOSIDES 8.6 MG TAB PO (00:30)
[2017-12-13] MEDS ORDERED: RESP: ALBUTEROL 2.5 MG/IPRATROPIUM 0.5 MG NEB (PRN) INH (00:30)
[2017-12-13] MEDS ORDERED: CHLORHEXIDINE GLUCONATE 2 % 1 PACK (2 CLOTHS) TOP (00:30)
[2017-12-13] MEDS: methylPREDNISolone SOD SUCC 40 MG/1 ML VIAL IV PUSH ×5 (00:30→23:20)
[2017-12-13] MEDS: MIDAZOLAM HCL 2 MG/2 ML VIAL IV PUSH (00:45)
[2017-12-13] MEDS: ROCURONIUM INJ 50 MG/5 ML VIAL IV (00:46)
[2017-12-13] MEDS: diphenhydrAMINE HCL 50 MG/ML VIAL IV PUSH ×7 (01:33→23:20)
[2017-12-13] MEDS: SODIUM CHLOR 0.9% 1000 ML INJ 1,000 ML IV ×2 (01:33→12:24)
[2017-12-13] MEDS: MIDAZOLAM HCL 5 MG/ML VIAL (1 ML) (02:09)
[2017-12-13] MEDS: RESP: ALBUTEROL 2.5 MG/IPRATROPIUM 0.5 MG NEB (SCH) INH ×4 (02:56→21:36)
[2017-12-13] MEDS: PROPOFOL 1000 MG/100 ML IV ×5 (03:19→21:42)
[2017-12-13] MEDS: CHLORHEXIDINE GLUCONATE 2 % 1 PACK (2 CLOTHS) TOP (04:00)
[2017-12-13 04:29] LABS: MRSA PCR SURVEILLANCE MRSA NOT DETECTED (NOT DETECT)
[2017-12-13] MEDS: LEVOTHYROXINE SODIUM 112 MCG TAB PO ×2 (05:58→08:33)
[2017-12-13] MEDS ORDERED: GLUCAGON 1 MG/ML VIAL OTHER (07:15)
[2017-12-13] MEDS ORDERED: DEXTROSE 50% IN WATER 50 ML VIAL(D50) IV PUSH (07:15)
[2017-12-13] MEDS: CHLORHEXIDINE 0.12% (ORAL KIT) 15 ML CUP MT ×2 (08:00→20:21)
[2017-12-13] MEDS: INSULIN NovoLIN REGULAR SUPPLEMENTAL SCALE SQ ×4 (08:00→20:00)
[2017-12-13 08:01] LABS: BLOOD GAS BASE EXCESS -1.9 mmol/L (-2-2); BLOOD GAS CARBOXYHEMOGLOBIN 1.2 % (0-4); BLOOD GAS HCO3 23 mmol/L (22-26); BLOOD GAS METHEMOGLOBIN 1.4 % (0-2); BLOOD GAS O2 HGB SATURATION 94 % (90-100); BLOOD GAS OXYGEN CONTENT 15.6 Vol % (12.0-20.0); BLOOD GAS PCO2 42 mmHg (38-42); BLOOD GAS PO2 84 mmHg (61-120); BLOOD GAS TOTAL HGB 11.8 G/DL (12.0-16.0); CRITICAL VALUE NO; OXYGEN DEVICE VENTILATOR
[2017-12-13 08:03] LABS: DRAW SITE LT RADIAL; FIO2 40 %; NUMBER OF ARTERIAL PUNCTURES 1; STAT NO; ULNAR PULSE PRESENT; VENT SETTINGS 16/450/PEEP5
[2017-12-13 08:15] LABS: AUTOMATED NEUTROPHIL # 8.2 TH/MM3 (1.8-7.7); BASOPHIL # 0.2 TH/MM3 (0-0.2); BASOPHIL % 1.6 % (0.0-2.0); EOSINOPHIL % 0.1 % (0.0-4.0); HEMATOCRIT 40.1 % (35.0-46.0); HEMO FLAGS DIFF FINAL; HEMOGLOBIN 13.5 GM/DL (11.6-15.3); LYMPH % 10.2 % (9.0-44.0); MEAN CORPUSCULAR HGB CONC 33.7 % (32.0-36.0); MEAN PLATELET VOLUME 8.9 FL (7.0-11.0); MONO % 0.9 % (0.0-8.0); MONOCYTE # 0.1 TH/MM3 (0-0.9); NEUT % 87.2 % (16.0-70.0); PLATELET COUNT 293 TH/MM3 (150-450); RED BLOOD COUNT 4.66 MIL/MM3 (4.00-5.30); RED CELL DISTRIBUTION WIDTH 14.1 % (11.6-17.2); WHITE BLOOD COUNT 9.5 TH/MM3 (4.0-11.0)
[2017-12-13 08:26] LABS: CHLORIDE 104 MEQ/L (98-107); POTASSIUM 3.8 MEQ/L (3.5-5.1); SODIUM (NA) 136 MEQ/L (136-145)
[2017-12-13 08:28] LABS: CALCIUM 8.5 MG/DL (8.5-10.1)
[2017-12-13 08:29] LABS: ANION GAP 7 MEQ/L (5-15); BICARBONATE 25.4 MEQ/L (21.0-32.0); BLOOD UREA NITROGEN 13 MG/DL (7-18); GLUCOSE,RANDOM 128 MG/DL (74-106); MAGNESIUM 2.2 MG/DL (1.5-2.5); PROTHROMBIN TIME - PATIENT 10.4 SEC (9.8-11.6)
[2017-12-13] MEDS: fentaNYL DRIP 250 ML IV ×2 (08:31→21:42)
[2017-12-13 08:32] LABS: CREATININE 0.65 MG/DL (0.50-1.00); GLOMERULAR FILTRATION RATE 91 ML/MIN (>89); PHOSPHORUS 3.1 MG/DL (2.5-4.9)
[2017-12-13] MEDS: RIVAROXABAN 20 MG TAB PO (08:32)
[2017-12-13] MEDS: FAMOTIDINE 20 MG TAB PO ×2 (08:32→20:16)
[2017-12-13] MEDS: VERAPAMIL HCL 240 MG SUSTAINED RELEASE TAB PO (08:32)
[2017-12-13] MEDS: DOCUSATE SODIUM 50 MG/SENNA 8.6 MG TAB PO ×2 (08:33→20:16)
[2017-12-13] MEDS: ARTIFICIAL TEARS OPTH SOLN 15 ML BTL EACH EYE ×3 (08:33→18:00)
[2017-12-13] MEDS: SODIUM CHLORIDE 0.9% FLUSH 10 ML FLUSH IV FLUSH ×2 (08:33→20:16)
[2017-12-13] MEDS: INCRUSE ELIPTA PO (09:00)
[2017-12-13] MEDS: BUDESONIDE-FORMOTEROL 160/4.5 MCG INHALER INH ×2 (09:00→20:16)
[2017-12-13 21:16] LABS: BLOOD, URINE NEG (NEG); GLUCOSE,URINE NEG (NEG); KETONE, URINE NEG (NEG); NITRITE,URINE NEG (NEG); URINE COLOR YELLOW (YELLW/STRAW); URINE LEUKOCYTE ESTERASE NEG (NEG)
[2017-12-13 21:28] LABS: BILIRUBIN, URINE NEG (NEG); MUCUS URINE MOD /lpf (OCC)
[2017-12-13 21:30] LABS: COMMENT (UR) CATH-CULTURE IND; CULTURE IF INDICATED CATH CULTURE IND
[2017-12-14] MEDS: SODIUM CHLOR 0.9% 1000 ML INJ 1,000 ML IV ×3 (00:19→22:55)
[2017-12-14] MEDS: RESP: ALBUTEROL 2.5 MG/IPRATROPIUM 0.5 MG NEB (SCH) INH ×4 (03:09→20:55)
[2017-12-14] MEDS: INSULIN NovoLIN REGULAR SUPPLEMENTAL SCALE SQ ×7 (03:44→22:58)
[2017-12-14] MEDS: diphenhydrAMINE HCL 50 MG/ML VIAL IV PUSH ×5 (03:44→19:39)
[2017-12-14] MEDS: CHLORHEXIDINE GLUCONATE 2 % 1 PACK (2 CLOTHS) TOP (03:45)
[2017-12-14] MEDS: PROPOFOL 1000 MG/100 ML IV ×8 (04:24→22:54)
[2017-12-14] MEDS: methylPREDNISolone SOD SUCC 40 MG/1 ML VIAL IV PUSH ×4 (05:29→22:55)
[2017-12-14] MEDS: LEVOTHYROXINE SODIUM 112 MCG TAB PO (05:29)
[2017-12-14 05:47] LABS: AUTOMATED NEUTROPHIL # 13.1 TH/MM3 (1.8-7.7); BASOPHIL # 0.2 TH/MM3 (0-0.2); BASOPHIL % 1.5 % (0.0-2.0); EOSINOPHIL # 0.1 TH/MM3 (0-0.4); EOSINOPHIL % 0.7 % (0.0-4.0); HEMATOCRIT 39.8 % (35.0-46.0); HEMOGLOBIN 13.1 GM/DL (11.6-15.3); LYMPH % 7.4 % (9.0-44.0); LYMPHOCYTE # 1.1 TH/MM3 (1.0-4.8); MEAN CELL VOLUME 86.3 FL (80.0-100.0); MEAN CORPUSCULAR HEMOGLOBIN 28.4 PG (27.0-34.0); MEAN CORPUSCULAR HGB CONC 32.9 % (32.0-36.0); MEAN PLATELET VOLUME 8.2 FL (7.0-11.0); MONO % 1.7 % (0.0-8.0); MONOCYTE # 0.3 TH/MM3 (0-0.9); NEUT % 88.7 % (16.0-70.0); PLATELET COUNT 315 TH/MM3 (150-450); RED BLOOD COUNT 4.61 MIL/MM3 (4.00-5.30); WHITE BLOOD COUNT 14.8 TH/MM3 (4.0-11.0)
[2017-12-14 05:56] LABS: HEMO FLAGS DIFF FINAL
[2017-12-14 05:59] LABS: CHLORIDE 105 MEQ/L (98-107); POTASSIUM 4.3 MEQ/L (3.5-5.1); SODIUM (NA) 135 MEQ/L (136-145)
[2017-12-14 06:03] LABS: APTT (PATIENT) 29.7 SEC (24.3-30.1); INTERNATIONAL NORMALIZED RATIO 1.1 RATIO; PROTHROMBIN TIME - PATIENT 11.6 SEC (9.8-11.6)
[2017-12-14 06:04] LABS: ALBUMIN 3.3 GM/DL (3.4-5.0); ANION GAP 8 MEQ/L (5-15); BICARBONATE 22.3 MEQ/L (21.0-32.0); CALCIUM 8.4 MG/DL (8.5-10.1); GLUCOSE,RANDOM 150 MG/DL (74-106); MAGNESIUM 2.5 MG/DL (1.5-2.5)
[2017-12-14 06:10] LABS: ALT (GPT) 17 U/L (10-53); AST (GOT) 16 U/L (15-37); BLOOD UREA NITROGEN 26 MG/DL (7-18); GLOMERULAR FILTRATION RATE 45 ML/MIN (>89); PHOSPHORUS 4.7 MG/DL (2.5-4.9); TOTAL BILIRUBIN ADULT 0.3 MG/DL (0.2-1.0); TOTAL PROTEIN 7.5 GM/DL (6.4-8.2)
[2017-12-14 06:11] LABS: ALKALINE PHOSPHATASE 85 U/L (45-117)
[2017-12-14] MEDS: fentaNYL DRIP 250 ML IV ×2 (07:57→17:50)
[2017-12-14] MEDS: CHLORHEXIDINE 0.12% (ORAL KIT) 15 ML CUP MT ×2 (08:00→19:41)
[2017-12-14] MEDS: INCRUSE ELIPTA PO (09:00)
[2017-12-14] MEDS: VERAPAMIL HCL 240 MG SUSTAINED RELEASE TAB PO (09:00)
[2017-12-14] MEDS: FAMOTIDINE 20 MG TAB PO ×2 (09:00→19:40)
[2017-12-14] MEDS: SODIUM CHLORIDE 0.9% FLUSH 10 ML FLUSH IV FLUSH ×2 (09:00→19:40)
[2017-12-14] MEDS: RIVAROXABAN 20 MG TAB PO (09:00)
[2017-12-14] MEDS: BUDESONIDE-FORMOTEROL 160/4.5 MCG INHALER INH ×2 (09:00→19:40)
[2017-12-14] MEDS: DOCUSATE SODIUM 50 MG/SENNA 8.6 MG TAB PO ×2 (09:00→19:40)
[2017-12-14] MEDS ORDERED: LORazepam 2 MG/ML VIAL (11:35)
[2017-12-14] MEDS: RASS Change Order XX (12:15)
[2017-12-14] MEDS: MIDAZOLAM HCL 2 MG/2 ML VIAL IV PUSH (12:29)
[2017-12-14] MEDS: MIDAZOLAM 100 MG/100 ML INJ 100 ML IV ×2 (12:34→19:39)
[2017-12-14] MEDS: LORazepam 2 MG/ML VIAL IV PUSH (13:53)
[2017-12-14 14:07] LABS: C1 ESTERASE INHIBITOR 40 mg/dL (19 - 37)
[2017-12-14 14:59] LABS: MRSA PCR SURVEILLANCE MRSA NOT DETECTED (NOT DETECT)
[2017-12-14] MEDS: ARTIFICIAL TEARS OPTH SOLN 15 ML BTL EACH EYE ×3 (16:13→17:50)
[2017-12-15] MEDS: diphenhydrAMINE HCL 50 MG/ML VIAL IV PUSH ×7 (01:33→22:47)
[2017-12-15] MEDS: PROPOFOL 1000 MG/100 ML IV ×5 (02:20→19:49)
[2017-12-15] MEDS: fentaNYL DRIP 250 ML IV ×3 (02:20→19:50)
[2017-12-15] MEDS: RESP: ALBUTEROL 2.5 MG/IPRATROPIUM 0.5 MG NEB (SCH) INH ×4 (03:14→20:14)
[2017-12-15] MEDS: LEVOTHYROXINE SODIUM 112 MCG TAB PO (03:59)
[2017-12-15] MEDS: CHLORHEXIDINE GLUCONATE 2 % 1 PACK (2 CLOTHS) TOP (03:59)
[2017-12-15] MEDS: INSULIN NovoLIN REGULAR SUPPLEMENTAL SCALE SQ ×6 (04:00→22:48)
[2017-12-15] MEDS: methylPREDNISolone SOD SUCC 40 MG/1 ML VIAL IV PUSH ×4 (04:13→22:47)
[2017-12-15] MEDS: MIDAZOLAM 100 MG/100 ML INJ 100 ML IV (05:53)
[2017-12-15] MEDS: CHLORHEXIDINE 0.12% (ORAL KIT) 15 ML CUP MT ×2 (08:00→19:50)
[2017-12-15] MEDS: BUDESONIDE-FORMOTEROL 160/4.5 MCG INHALER INH ×2 (08:17→19:47)
[2017-12-15] MEDS: ARTIFICIAL TEARS OPTH SOLN 15 ML BTL EACH EYE ×3 (08:17→17:01)
[2017-12-15] MEDS: SODIUM CHLORIDE 0.9% FLUSH 10 ML FLUSH IV FLUSH ×2 (08:17→19:48)
[2017-12-15] MEDS: INCRUSE ELIPTA PO (08:17)
[2017-12-15] MEDS: VERAPAMIL HCL 240 MG SUSTAINED RELEASE TAB PO (09:00)
[2017-12-15] MEDS: DOCUSATE SODIUM 50 MG/SENNA 8.6 MG TAB PO ×2 (09:00→19:48)
[2017-12-15] MEDS: RIVAROXABAN 20 MG TAB PO (09:00)
[2017-12-15] MEDS: FAMOTIDINE 20 MG TAB PO ×2 (09:00→19:48)
[2017-12-15 10:23] LABS: AUTOMATED NEUTROPHIL # 8.1 TH/MM3 (1.8-7.7); BASOPHIL % 0.1 % (0.0-2.0); HEMATOCRIT 36.2 % (35.0-46.0); HEMO FLAGS DIFF FINAL; LYMPH % 6.3 % (9.0-44.0); LYMPHOCYTE # 0.6 TH/MM3 (1.0-4.8); MEAN CELL VOLUME 87.4 FL (80.0-100.0); MEAN CORPUSCULAR HGB CONC 33.2 % (32.0-36.0); MEAN PLATELET VOLUME 8.2 FL (7.0-11.0); MONO % 4.7 % (0.0-8.0); MONOCYTE # 0.4 TH/MM3 (0-0.9); NEUT % 88.9 % (16.0-70.0); PLATELET COUNT 252 TH/MM3 (150-450); RED BLOOD COUNT 4.14 MIL/MM3 (4.00-5.30); RED CELL DISTRIBUTION WIDTH 14.5 % (11.6-17.2); WHITE BLOOD COUNT 9.1 TH/MM3 (4.0-11.0)
[2017-12-15 10:42] LABS: ALBUMIN 2.9 GM/DL (3.4-5.0); ALT (GPT) 16 U/L (10-53); ANION GAP 10 MEQ/L (5-15); AST (GOT) 16 U/L (15-37); BICARBONATE 21.2 MEQ/L (21.0-32.0); BLOOD UREA NITROGEN 42 MG/DL (7-18); CALCIUM 7.9 MG/DL (8.5-10.1); CHLORIDE 108 MEQ/L (98-107); CREATININE 1.91 MG/DL (0.50-1.00); GLOMERULAR FILTRATION RATE 26 ML/MIN (>89); GLUCOSE,RANDOM 128 MG/DL (74-106); POTASSIUM 4.2 MEQ/L (3.5-5.1); SODIUM (NA) 139 MEQ/L (136-145)
[2017-12-15 10:44] LABS: ALKALINE PHOSPHATASE 71 U/L (45-117); TOTAL BILIRUBIN ADULT 0.2 MG/DL (0.2-1.0); TOTAL PROTEIN 6.5 GM/DL (6.4-8.2)
[2017-12-15] MEDS: SODIUM CHLOR 0.9% 1000 ML INJ 1,000 ML IV ×2 (12:06→19:48)
[2017-12-16] MEDS: PROPOFOL 1000 MG/100 ML IV ×5 (01:30→23:58)
[2017-12-16] MEDS: INSULIN NovoLIN REGULAR SUPPLEMENTAL SCALE SQ ×5 (02:34→20:00)
[2017-12-16] MEDS: RESP: ALBUTEROL 2.5 MG/IPRATROPIUM 0.5 MG NEB (SCH) INH ×4 (03:15→20:11)
[2017-12-16] MEDS: methylPREDNISolone SOD SUCC 40 MG/1 ML VIAL IV PUSH ×4 (03:34→23:59)
[2017-12-16] MEDS: diphenhydrAMINE HCL 50 MG/ML VIAL IV PUSH ×6 (03:34→23:58)
[2017-12-16] MEDS: LEVOTHYROXINE SODIUM 112 MCG TAB PO (03:34)
[2017-12-16] MEDS: CHLORHEXIDINE GLUCONATE 2 % 1 PACK (2 CLOTHS) TOP (03:34)
[2017-12-16] MEDS: ARTIFICIAL TEARS OPTH SOLN 15 ML BTL EACH EYE ×3 (07:57→18:00)
[2017-12-16] MEDS: SODIUM CHLORIDE 0.9% FLUSH 10 ML FLUSH IV FLUSH ×2 (07:57→21:20)
[2017-12-16] MEDS: CHLORHEXIDINE 0.12% (ORAL KIT) 15 ML CUP MT ×2 (07:58→21:19)
[2017-12-16] MEDS: INCRUSE ELIPTA PO (07:59)
[2017-12-16] MEDS: VERAPAMIL HCL 240 MG SUSTAINED RELEASE TAB PO (07:59)
[2017-12-16] MEDS: DOCUSATE SODIUM 50 MG/SENNA 8.6 MG TAB PO ×2 (08:00→21:00)
[2017-12-16] MEDS: FAMOTIDINE 20 MG TAB PO ×2 (08:00→21:00)
[2017-12-16] MEDS: RIVAROXABAN 20 MG TAB PO (08:00)
[2017-12-16 08:09] LABS: HEMATOCRIT 37.9 % (35.0-46.0); HEMOGLOBIN 12.5 GM/DL (11.6-15.3); MEAN CELL VOLUME 88.4 FL (80.0-100.0); MEAN CORPUSCULAR HEMOGLOBIN 29.1 PG (27.0-34.0); MEAN CORPUSCULAR HGB CONC 32.9 % (32.0-36.0); MEAN PLATELET VOLUME 8.9 FL (7.0-11.0); PLATELET COUNT 236 TH/MM3 (150-450); RED BLOOD COUNT 4.29 MIL/MM3 (4.00-5.30); RED CELL DISTRIBUTION WIDTH 14.8 % (11.6-17.2); REVIEW FLAG FINAL; WHITE BLOOD COUNT 7.4 TH/MM3 (4.0-11.0)
[2017-12-16 08:10] LABS: ANION GAP 10 MEQ/L (5-15); BICARBONATE 21.5 MEQ/L (21.0-32.0); BLOOD UREA NITROGEN 38 MG/DL (7-18); CHLORIDE 112 MEQ/L (98-107); CREATININE 1.32 MG/DL (0.50-1.00); GLOMERULAR FILTRATION RATE 40 ML/MIN (>89); GLUCOSE,RANDOM 118 MG/DL (74-106); MAGNESIUM 2.6 MG/DL (1.5-2.5); SODIUM (NA) 143 MEQ/L (136-145)
[2017-12-16 08:12] LABS: PHOSPHORUS 4.6 MG/DL (2.5-4.9)
[2017-12-16] MEDS: BUDESONIDE-FORMOTEROL 160/4.5 MCG INHALER INH ×2 (10:35→21:00)
[2017-12-16] MEDS: fentaNYL DRIP 250 ML IV ×2 (10:36→23:59)
[2017-12-16 10:45] LABS: HEMATOCRIT 37.3 % (35.0-46.0); HEMOGLOBIN 12.4 GM/DL (11.6-15.3); MEAN CELL VOLUME 88.3 FL (80.0-100.0); MEAN CORPUSCULAR HEMOGLOBIN 29.5 PG (27.0-34.0); MEAN CORPUSCULAR HGB CONC 33.4 % (32.0-36.0); MEAN PLATELET VOLUME 8.3 FL (7.0-11.0); PLATELET COUNT 240 TH/MM3 (150-450); RED BLOOD COUNT 4.23 MIL/MM3 (4.00-5.30); RED CELL DISTRIBUTION WIDTH 14.8 % (11.6-17.2); REVIEW FLAG FINAL; WHITE BLOOD COUNT 7.9 TH/MM3 (4.0-11.0)
[2017-12-16] MEDS: HEPARIN-D5W 25,000 U/250 ML 250 ML IV (17:11)
[2017-12-16] MEDS: SODIUM CHLOR 0.9% 1000 ML INJ 1,000 ML IV ×2 (17:49→23:59)
[2017-12-16 23:34] LABS: APTT (PATIENT) 80.4 SEC (24.3-30.1)
[2017-12-17] MEDS: RESP: ALBUTEROL 2.5 MG/IPRATROPIUM 0.5 MG NEB (SCH) INH (03:43)
[2017-12-17] MEDS: INSULIN NovoLIN REGULAR SUPPLEMENTAL SCALE SQ ×7 (03:50→23:59)
[2017-12-17] MEDS: CHLORHEXIDINE GLUCONATE 2 % 1 PACK (2 CLOTHS) TOP (03:51)
[2017-12-17] MEDS: diphenhydrAMINE HCL 50 MG/ML VIAL IV PUSH ×5 (03:56→21:09)
[2017-12-17 05:00] LABS: AUTOMATED NEUTROPHIL # 10.4 TH/MM3 (1.8-7.7); BASOPHIL % 0.1 % (0.0-2.0); EOSINOPHIL % 0.1 % (0.0-4.0); HEMATOCRIT 38.3 % (35.0-46.0); HEMOGLOBIN 12.4 GM/DL (11.6-15.3); LYMPHOCYTE # 0.5 TH/MM3 (1.0-4.8); MEAN CELL VOLUME 88.1 FL (80.0-100.0); MEAN CORPUSCULAR HEMOGLOBIN 28.6 PG (27.0-34.0); MEAN CORPUSCULAR HGB CONC 32.5 % (32.0-36.0); MEAN PLATELET VOLUME 8.3 FL (7.0-11.0); MONO % 7.5 % (0.0-8.0); MONOCYTE # 0.9 TH/MM3 (0-0.9); NEUT % 88.3 % (16.0-70.0); PLATELET COUNT 270 TH/MM3 (150-450); RED BLOOD COUNT 4.35 MIL/MM3 (4.00-5.30); WHITE BLOOD COUNT 11.8 TH/MM3 (4.0-11.0)
[2017-12-17 05:06] LABS: HEMO FLAGS AUTO DIFF
[2017-12-17 05:17] LABS: APTT (PATIENT) 116.4 SEC (24.3-30.1)
[2017-12-17 05:18] LABS: ANION GAP 9 MEQ/L (5-15); BLOOD UREA NITROGEN 38 MG/DL (7-18); CALCIUM 7.8 MG/DL (8.5-10.1); CHLORIDE 117 MEQ/L (98-107); CREATININE 1.13 MG/DL (0.50-1.00); GLOMERULAR FILTRATION RATE 48 ML/MIN (>89); GLUCOSE,RANDOM 97 MG/DL (74-106); POTASSIUM 4.3 MEQ/L (3.5-5.1); SODIUM (NA) 148 MEQ/L (136-145)
[2017-12-17] MEDS: methylPREDNISolone SOD SUCC 40 MG/1 ML VIAL IV PUSH ×4 (05:35→23:56)
[2017-12-17 08:08] LABS: APTT (PATIENT) 82.5 SEC (24.3-30.1)
[2017-12-17 08:39] LABS: SCAN/DIFF AUTO DIFF CONFIRMED
[2017-12-17] MEDS: BUDESONIDE-FORMOTEROL 160/4.5 MCG INHALER INH ×2 (09:00→21:00)
[2017-12-17] MEDS: INCRUSE ELIPTA PO (09:00)
[2017-12-17] MEDS: HEPARIN-D5W 25,000 U/250 ML 250 ML IV (09:27)
[2017-12-17] MEDS: SODIUM CHLORIDE 0.9% FLUSH 10 ML FLUSH IV FLUSH ×2 (09:28→21:09)
[2017-12-17] MEDS: FAMOTIDINE 20 MG/2 ML VIAL IV PUSH ×2 (09:28→21:09)
[2017-12-17] MEDS: CHLORHEXIDINE 0.12% (ORAL KIT) 15 ML CUP MT ×2 (09:29→20:00)
[2017-12-17] MEDS: FREE WATER G-TUBE ×3 (09:29→21:10)
[2017-12-17] MEDS: ARTIFICIAL TEARS OPTH SOLN 15 ML BTL EACH EYE ×3 (09:29→17:23)
[2017-12-17] MEDS: DOCUSATE SODIUM 50 MG/SENNA 8.6 MG TAB PO ×2 (09:43→21:08)
[2017-12-17] MEDS: LEVOTHYROXINE SODIUM 112 MCG TAB PO (09:43)
[2017-12-17] MEDS: hydrALAZINE HCL 50 MG TAB PO ×2 (09:43→17:23)
[2017-12-17] MEDS: PROPOFOL 1000 MG/100 ML IV ×2 (15:22→20:30)
[2017-12-17 15:58] LABS: APTT (PATIENT) 75.6 SEC (24.3-30.1)
[2017-12-17] MEDS: FUROSEMIDE 40 MG/4 ML VIAL IV PUSH (17:24)
[2017-12-17] MEDS: AZTREONAM INJ 1,000 MG in SODIUM CHLORIDE 0.9% INJ 100 ML IV (17:25)
[2017-12-17] MEDS: RESP: ALBUTEROL 2.5 MG/IPRATROPIUM 0.5 MG NEB (SCH) NEB ×2 (17:29→20:54)
[2017-12-17] MEDS: fentaNYL DRIP 250 ML IV (17:34)
[2017-12-17 18:41] LABS: BLOOD GAS BASE EXCESS -5.4 mmol/L (-2-2); BLOOD GAS CARBOXYHEMOGLOBIN 0.5 % (0-4); BLOOD GAS HCO3 21 mmol/L (22-26); BLOOD GAS METHEMOGLOBIN 1.5 % (0-2); BLOOD GAS O2 HGB SATURATION 90 % (90-100); BLOOD GAS OXYGEN CONTENT 17.2 Vol % (12.0-20.0); BLOOD GAS PCO2 51 mmHg (38-42); BLOOD GAS PO2 74 mmHg (61-120); BLOOD GAS TOTAL HGB 13.5 G/DL (12.0-16.0); TEMP CORR TO 98.6
[2017-12-17 18:42] LABS: CRITICAL VALUE YES; DRAW SITE LT RADIAL; FIO2 40 %; NUMBER OF ARTERIAL PUNCTURES 1; OXYGEN DEVICE VENTILATOR; STAT NO; ULNAR PULSE PRESENT
[2017-12-17 18:48] LABS: BLOOD GAS BASE EXCESS -5.3 mmol/L (-2-2); BLOOD GAS CARBOXYHEMOGLOBIN 0.7 % (0-4); BLOOD GAS HCO3 20 mmol/L (22-26); BLOOD GAS METHEMOGLOBIN 0.8 % (0-2); BLOOD GAS O2 HGB SATURATION 91 % (90-100); BLOOD GAS OXYGEN CONTENT 17.2 Vol % (12.0-20.0); BLOOD GAS PCO2 45 mmHg (38-42); BLOOD GAS PO2 70 mmHG (61-120); BLOOD GAS TOTAL HGB 13.5 G/DL (12.0-16.0); TEMP CORR TO 98.6
[2017-12-17 18:49] LABS: CRITICAL VALUE YES; DRAW SITE LT RADIAL; FIO2 40 %; NUMBER OF ARTERIAL PUNCTURES 1; OXYGEN DEVICE VENTILATOR; STAT NO; ULNAR PULSE PRESENT
[2017-12-17 21:26] LABS: APTT (PATIENT) 68.9 SEC (24.3-30.1)
[2017-12-18] MEDS: PROPOFOL 1000 MG/100 ML IV ×6 (00:01→20:41)
[2017-12-18] MEDS: RESP: ALBUTEROL 2.5 MG/IPRATROPIUM 0.5 MG NEB (SCH) NEB ×6 (00:11→20:28)
[2017-12-18] MEDS: AZTREONAM INJ 1,000 MG in SODIUM CHLORIDE 0.9% INJ 100 ML IV ×3 (02:51→16:51)
[2017-12-18] MEDS: INSULIN NovoLIN REGULAR SUPPLEMENTAL SCALE SQ ×5 (04:00→20:00)
[2017-12-18] MEDS: CHLORHEXIDINE GLUCONATE 2 % 1 PACK (2 CLOTHS) TOP (04:00)
[2017-12-18] MEDS: diphenhydrAMINE HCL 50 MG/ML VIAL IV PUSH ×6 (04:28→20:23)
[2017-12-18] MEDS: FREE WATER G-TUBE ×3 (05:13→20:24)
[2017-12-18] MEDS: LEVOTHYROXINE SODIUM 112 MCG TAB PO (05:13)
[2017-12-18] MEDS: methylPREDNISolone SOD SUCC 40 MG/1 ML VIAL IV PUSH ×3 (05:13→16:50)
[2017-12-18] MEDS: fentaNYL DRIP 250 ML IV ×2 (05:50→16:52)
[2017-12-18 06:49] LABS: AUTOMATED NEUTROPHIL # 8.7 TH/MM3 (1.8-7.7); BASOPHIL % 0.1 % (0.0-2.0); HEMATOCRIT 35.6 % (35.0-46.0); HEMOGLOBIN 11.7 GM/DL (11.6-15.3); LYMPH % 7.5 % (9.0-44.0); LYMPHOCYTE # 0.8 TH/MM3 (1.0-4.8); MEAN CORPUSCULAR HGB CONC 32.9 % (32.0-36.0); MEAN PLATELET VOLUME 9.2 FL (7.0-11.0); MONO % 7.7 % (0.0-8.0); MONOCYTE # 0.8 TH/MM3 (0-0.9); NEUT % 84.7 % (16.0-70.0); PLATELET COUNT 236 TH/MM3 (150-450); RED BLOOD COUNT 4.04 MIL/MM3 (4.00-5.30); RED CELL DISTRIBUTION WIDTH 15.3 % (11.6-17.2); WHITE BLOOD COUNT 10.3 TH/MM3 (4.0-11.0)
[2017-12-18 07:03] LABS: HEMO FLAGS AUTO DIFF
[2017-12-18 07:18] LABS: ANION GAP 9 MEQ/L (5-15); BICARBONATE 21.6 MEQ/L (21.0-32.0); BLOOD UREA NITROGEN 53 MG/DL (7-18); CALCIUM 7.8 MG/DL (8.5-10.1); CHLORIDE 114 MEQ/L (98-107); CREATININE 1.46 MG/DL (0.50-1.00); GLOMERULAR FILTRATION RATE 36 ML/MIN (>89); GLUCOSE,RANDOM 107 MG/DL (74-106); MAGNESIUM 2.5 MG/DL (1.5-2.5); PHOSPHORUS 3.8 MG/DL (2.5-4.9); POTASSIUM 4.1 MEQ/L (3.5-5.1); SODIUM (NA) 145 MEQ/L (136-145)
[2017-12-18] MEDS: HEPARIN-D5W 25,000 U/250 ML 250 ML IV (07:46)
[2017-12-18] MEDS: CHLORHEXIDINE 0.12% (ORAL KIT) 15 ML CUP MT ×2 (07:47→20:24)
[2017-12-18] MEDS: SODIUM CHLORIDE 0.9% FLUSH 10 ML FLUSH IV FLUSH ×2 (07:48→20:24)
[2017-12-18] MEDS: BUDESONIDE-FORMOTEROL 160/4.5 MCG INHALER INH ×2 (07:48→20:23)
[2017-12-18] MEDS: ARTIFICIAL TEARS OPTH SOLN 15 ML BTL EACH EYE ×3 (07:48→16:51)
[2017-12-18] MEDS: INCRUSE ELIPTA PO (07:49)
[2017-12-18] MEDS: hydrALAZINE HCL 50 MG TAB PO ×3 (07:49→16:51)
[2017-12-18] MEDS: DOCUSATE SODIUM 50 MG/SENNA 8.6 MG TAB PO ×2 (07:49→20:24)
[2017-12-18] MEDS: FAMOTIDINE 20 MG/2 ML VIAL IV PUSH (07:49)
[2017-12-18 08:37] LABS: BANDS 12 % (0-6); LYMPHOCYTES 3 % (9-44); MONOCYTES 6 % (0-8); MYELOCYTES 1 % (0-0); NEUTROPHIL # MANUAL DIFF 9.4 TH/MM3 (1.8-7.7); PLATELET ESTIMATE SMEAR NORMAL (NORMAL); PLATELET MORPHOLOGY NORMAL (NORMAL); POLYS (SEG NEUTROPHILS) 78 % (16-70); SCAN/DIFF FINAL DIFF MANUAL; WBC DIFF SAMPLE 100
[2017-12-18 08:38] LABS: BURR CELLS 1+ (NORMAL)
[2017-12-18 09:33] LABS: APTT (PATIENT) 114.8 SEC (24.3-30.1)
[2017-12-18] MEDS: SENNOSIDES SYRUP 8.8 MG/5 ML CUP PO (09:40)
[2017-12-18] MEDS: DOCUSATE SODIUM 100 MG/10 ML UDC PO ×2 (09:40→20:22)
[2017-12-18] MEDS: BISACODYL 10 MG SUPP RECTAL (09:41)
[2017-12-18] MEDS: METOCLOPRAMIDE HCL 10 MG/2 ML VIAL IV PUSH ×2 (09:41→16:50)
[2017-12-18 10:53] LABS: BLOOD GAS BASE EXCESS -4.2 mmol/L (-2-2); BLOOD GAS CARBOXYHEMOGLOBIN 0.7 % (0-4); BLOOD GAS HCO3 21 mmol/L (22-26); BLOOD GAS METHEMOGLOBIN 1.5 % (0-2); BLOOD GAS O2 HGB SATURATION 90 % (90-100); BLOOD GAS OXYGEN CONTENT 16.3 Vol % (12.0-20.0); BLOOD GAS PCO2 45 mmHg (38-42); BLOOD GAS PO2 71 mmHg (61-120); BLOOD GAS TOTAL HGB 12.9 G/DL (12.0-16.0); CRITICAL VALUE NO; OXYGEN DEVICE VENTILATOR; TEMP CORR TO 98.6
[2017-12-18 10:54] LABS: DRAW SITE RT RADIAL; FIO2 50 %; NUMBER OF ARTERIAL PUNCTURES 1; STAT NO; ULNAR PULSE PRESENT; VENT SETTINGS AC:
[2017-12-18 17:45] LABS: APTT (PATIENT) 52.1 SEC (24.3-30.1)
[2017-12-18 19:06] LABS: APTT (PATIENT) 30.1 SEC (24.3-30.1)
[2017-12-18] MEDS: FAMOTIDINE 20 MG TAB PO (20:24)
[2017-12-18 23:03] LABS: APTT (PATIENT) 34.5 SEC (24.3-30.1)
[2017-12-19] MEDS: RESP: ALBUTEROL 2.5 MG/IPRATROPIUM 0.5 MG NEB (SCH) NEB ×6 (00:25→20:14)
[2017-12-19] MEDS: PROPOFOL 1000 MG/100 ML IV ×8 (01:24→23:58)
[2017-12-19] MEDS: methylPREDNISolone SOD SUCC 40 MG/1 ML VIAL IV PUSH ×5 (01:25→23:43)
[2017-12-19] MEDS: diphenhydrAMINE HCL 50 MG/ML VIAL IV PUSH ×7 (01:25→23:43)
[2017-12-19] MEDS: METOCLOPRAMIDE HCL 10 MG/2 ML VIAL IV PUSH ×3 (01:26→17:14)
[2017-12-19] MEDS: hydrALAZINE HCL 50 MG TAB PO ×3 (01:26→17:16)
[2017-12-19] MEDS: AZTREONAM INJ 1,000 MG in SODIUM CHLORIDE 0.9% INJ 100 ML IV ×3 (02:27→17:17)
[2017-12-19] MEDS: CHLORHEXIDINE GLUCONATE 2 % 1 PACK (2 CLOTHS) TOP (04:00)
[2017-12-19] MEDS: INSULIN NovoLIN REGULAR SUPPLEMENTAL SCALE SQ ×7 (04:00→23:47)
[2017-12-19] MEDS: FREE WATER G-TUBE ×3 (04:20→21:41)
[2017-12-19] MEDS: LEVOTHYROXINE SODIUM 112 MCG TAB PO (06:02)
[2017-12-19] MEDS: fentaNYL DRIP 250 ML IV ×2 (06:02→18:14)
[2017-12-19 07:10] LABS: AUTOMATED NEUTROPHIL # 8.1 TH/MM3 (1.8-7.7); BASOPHIL % 0.1 % (0.0-2.0); EOSINOPHIL % 0.4 % (0.0-4.0); HEMATOCRIT 35.5 % (35.0-46.0); HEMOGLOBIN 11.8 GM/DL (11.6-15.3); LYMPH % 9.9 % (9.0-44.0); MEAN CELL VOLUME 87.6 FL (80.0-100.0); MEAN CORPUSCULAR HEMOGLOBIN 29.2 PG (27.0-34.0); MEAN CORPUSCULAR HGB CONC 33.3 % (32.0-36.0); MEAN PLATELET VOLUME 9.3 FL (7.0-11.0); MONO % 9.8 % (0.0-8.0); NEUT % 79.8 % (16.0-70.0); PLATELET COUNT 260 TH/MM3 (150-450); RED BLOOD COUNT 4.05 MIL/MM3 (4.00-5.30); RED CELL DISTRIBUTION WIDTH 15.3 % (11.6-17.2); WHITE BLOOD COUNT 10.2 TH/MM3 (4.0-11.0)
[2017-12-19 07:17] LABS: APTT (PATIENT) 37.1 SEC (24.3-30.1)
[2017-12-19 07:22] LABS: HEMO FLAGS AUTO DIFF
[2017-12-19 07:36] LABS: ANION GAP 9 MEQ/L (5-15); BICARBONATE 21.8 MEQ/L (21.0-32.0); BLOOD UREA NITROGEN 63 MG/DL (7-18); CALCIUM 8.3 MG/DL (8.5-10.1); CHLORIDE 113 MEQ/L (98-107); CREATININE 1.49 MG/DL (0.50-1.00); GLOMERULAR FILTRATION RATE 35 ML/MIN (>89); GLUCOSE,RANDOM 103 MG/DL (74-106); POTASSIUM 4.6 MEQ/L (3.5-5.1); SODIUM (NA) 144 MEQ/L (136-145)
[2017-12-19] MEDS: CHLORHEXIDINE 0.12% (ORAL KIT) 15 ML CUP MT ×2 (07:59→20:16)
[2017-12-19] MEDS: FAMOTIDINE 20 MG TAB PO ×2 (07:59→19:52)
[2017-12-19] MEDS: DOCUSATE SODIUM 50 MG/SENNA 8.6 MG TAB PO ×2 (08:00→20:16)
[2017-12-19] MEDS: SENNOSIDES SYRUP 8.8 MG/5 ML CUP PO (08:00)
[2017-12-19] MEDS: INCRUSE ELIPTA PO (08:03)
[2017-12-19] MEDS: SODIUM CHLORIDE 0.9% FLUSH 10 ML FLUSH IV FLUSH ×2 (08:03→19:52)
[2017-12-19] MEDS: BUDESONIDE-FORMOTEROL 160/4.5 MCG INHALER INH ×2 (08:03→21:00)
[2017-12-19] MEDS: DOCUSATE SODIUM 100 MG/10 ML UDC PO ×2 (08:03→19:52)
[2017-12-19] MEDS: ARTIFICIAL TEARS OPTH SOLN 15 ML BTL EACH EYE ×3 (08:03→17:16)
[2017-12-19 09:14] LABS: BANDS 9 % (0-6); LYMPHOCYTES 4 % (9-44); METAMYELOCYTES 1 % (0-1); MONOCYTES 3 % (0-8); NEUTROPHIL # MANUAL DIFF 9.5 TH/MM3 (1.8-7.7); POLYS (SEG NEUTROPHILS) 83 % (16-70); WBC DIFF SAMPLE 100
[2017-12-19 09:15] LABS: PLATELET ESTIMATE SMEAR NORMAL (NORMAL); PLATELET MORPHOLOGY NORMAL (NORMAL); SCAN/DIFF FINAL DIFF MANUAL
[2017-12-19 16:25] LABS: APTT (PATIENT) 41.5 SEC (24.3-30.1)
[2017-12-19] MEDS: HEPARIN-D5W 25,000 U/250 ML 250 ML IV (18:16)
[2017-12-19] MEDS: MIDAZOLAM 100 MG/100 ML INJ 100 ML IV (18:58)
[2017-12-19 22:57] LABS: APTT (PATIENT) 39.5 SEC (24.3-30.1)
[2017-12-20] MEDS: RESP: ALBUTEROL 2.5 MG/IPRATROPIUM 0.5 MG NEB (SCH) NEB ×6 (00:39→20:25)
[2017-12-20] MEDS: METOCLOPRAMIDE HCL 10 MG/2 ML VIAL IV PUSH ×3 (01:17→16:22)
[2017-12-20] MEDS: hydrALAZINE HCL 50 MG TAB PO ×3 (01:17→16:23)
[2017-12-20] MEDS: AZTREONAM INJ 1,000 MG in SODIUM CHLORIDE 0.9% INJ 100 ML IV ×3 (01:18→17:27)
[2017-12-20] MEDS: PROPOFOL 1000 MG/100 ML IV ×2 (03:36→06:44)
[2017-12-20] MEDS: INSULIN NovoLIN REGULAR SUPPLEMENTAL SCALE SQ ×6 (03:46→23:48)
[2017-12-20 04:00] LABS: AUTOMATED NEUTROPHIL # 8.9 TH/MM3 (1.8-7.7); BASOPHIL % 0.2 % (0.0-2.0); HEMATOCRIT 35.1 % (35.0-46.0); HEMOGLOBIN 11.7 GM/DL (11.6-15.3); LYMPH % 10.2 % (9.0-44.0); LYMPHOCYTE # 1.1 TH/MM3 (1.0-4.8); MEAN CELL VOLUME 87.4 FL (80.0-100.0); MEAN CORPUSCULAR HEMOGLOBIN 29.1 PG (27.0-34.0); MEAN CORPUSCULAR HGB CONC 33.3 % (32.0-36.0); MEAN PLATELET VOLUME 8.7 FL (7.0-11.0); MONOCYTE # 0.8 TH/MM3 (0-0.9); NEUT % 82.6 % (16.0-70.0); PLATELET COUNT 243 TH/MM3 (150-450); RED BLOOD COUNT 4.01 MIL/MM3 (4.00-5.30); RED CELL DISTRIBUTION WIDTH 14.9 % (11.6-17.2); WHITE BLOOD COUNT 10.8 TH/MM3 (4.0-11.0)
[2017-12-20] MEDS: CHLORHEXIDINE GLUCONATE 2 % 1 PACK (2 CLOTHS) TOP (04:00)
[2017-12-20 04:04] LABS: HEMO FLAGS AUTO DIFF
[2017-12-20 04:11] LABS: APTT (PATIENT) 35.3 SEC (24.3-30.1)
[2017-12-20 04:27] LABS: ANION GAP 12 MEQ/L (5-15); BICARBONATE 19.8 MEQ/L (21.0-32.0); BLOOD UREA NITROGEN 63 MG/DL (7-18); CALCIUM 8.3 MG/DL (8.5-10.1); CHLORIDE 110 MEQ/L (98-107); CREATININE 1.35 MG/DL (0.50-1.00); GLOMERULAR FILTRATION RATE 39 ML/MIN (>89); GLUCOSE,RANDOM 113 MG/DL (74-106); MAGNESIUM 3.1 MG/DL (1.5-2.5); PHOSPHORUS 3.8 MG/DL (2.5-4.9); POTASSIUM 4.9 MEQ/L (3.5-5.1); SODIUM (NA) 142 MEQ/L (136-145)
[2017-12-20] MEDS: diphenhydrAMINE HCL 50 MG/ML VIAL IV PUSH ×5 (04:30→19:41)
[2017-12-20 05:30] LABS: BANDS 2 % (0-6); LYMPHOCYTES 9 % (9-44); METAMYELOCYTES 3 % (0-1); MONOCYTES 3 % (0-8); NEUTROPHIL # MANUAL DIFF 9.5 TH/MM3 (1.8-7.7); POLYS (SEG NEUTROPHILS) 82 % (16-70); PROMYELOCYTES 1 % (0-0); WBC DIFF SAMPLE 100
[2017-12-20 05:31] LABS: PLATELET ESTIMATE SMEAR NORMAL (NORMAL); PLATELET MORPHOLOGY NORMAL (NORMAL); SCAN/DIFF FINAL DIFF MANUAL
[2017-12-20] MEDS: FREE WATER G-TUBE ×3 (06:00→19:43)
[2017-12-20] MEDS: methylPREDNISolone SOD SUCC 40 MG/1 ML VIAL IV PUSH ×4 (06:00→23:30)
[2017-12-20] MEDS: LEVOTHYROXINE SODIUM 112 MCG TAB PO (06:25)
[2017-12-20] MEDS: DOCUSATE SODIUM 50 MG/SENNA 8.6 MG TAB PO ×2 (08:02→19:40)
[2017-12-20] MEDS: DOCUSATE SODIUM 100 MG/10 ML UDC PO ×2 (08:02→19:40)
[2017-12-20] MEDS: SENNOSIDES SYRUP 8.8 MG/5 ML CUP PO (08:02)
[2017-12-20] MEDS: FAMOTIDINE 20 MG TAB PO ×2 (08:03→19:40)
[2017-12-20] MEDS: ARTIFICIAL TEARS OPTH SOLN 15 ML BTL EACH EYE ×3 (08:07→17:27)
[2017-12-20] MEDS: SODIUM CHLORIDE 0.9% FLUSH 10 ML FLUSH IV FLUSH ×2 (08:07→19:41)
[2017-12-20] MEDS: CHLORHEXIDINE 0.12% (ORAL KIT) 15 ML CUP MT ×2 (08:08→19:37)
[2017-12-20] MEDS: BUDESONIDE-FORMOTEROL 160/4.5 MCG INHALER INH ×2 (08:08→21:00)
[2017-12-20] MEDS: INCRUSE ELIPTA PO (08:08)
[2017-12-20 10:54] LABS: APTT (PATIENT) 24.7 SEC (24.3-30.1)
[2017-12-20] MEDS: HEPARIN-D5W 25,000 U/250 ML 250 ML IV (17:26)
[2017-12-20 17:45] LABS: APTT (PATIENT) 51.8 SEC (24.3-30.1)
[2017-12-20] MEDS: MIDAZOLAM 50 MG/50 ML INJ 50 ML IV (21:48)
[2017-12-20] MEDS: fentaNYL DRIP 250 ML IV (21:48)
[2017-12-21] MEDS: RESP: ALBUTEROL 2.5 MG/IPRATROPIUM 0.5 MG NEB (SCH) NEB ×5 (00:15→15:26)
[2017-12-21 01:08] LABS: APTT (PATIENT) 54.3 SEC (24.3-30.1)
[2017-12-21] MEDS: diphenhydrAMINE HCL 50 MG/ML VIAL IV PUSH ×6 (02:29→19:54)
[2017-12-21] MEDS: METOCLOPRAMIDE HCL 10 MG/2 ML VIAL IV PUSH ×3 (02:29→15:30)
[2017-12-21] MEDS: AZTREONAM INJ 1,000 MG in SODIUM CHLORIDE 0.9% INJ 100 ML IV ×3 (02:29→15:30)
[2017-12-21] MEDS: hydrALAZINE HCL 50 MG TAB PO ×3 (02:31→15:29)
[2017-12-21] MEDS: fentaNYL DRIP 250 ML IV (02:40)
[2017-12-21] MEDS: INSULIN NovoLIN REGULAR SUPPLEMENTAL SCALE SQ ×5 (04:00→20:00)
[2017-12-21] MEDS: CHLORHEXIDINE GLUCONATE 2 % 1 PACK (2 CLOTHS) TOP (04:00)
[2017-12-21] MEDS: methylPREDNISolone SOD SUCC 40 MG/1 ML VIAL IV PUSH ×2 (05:31→19:54)
[2017-12-21] MEDS: LEVOTHYROXINE SODIUM 112 MCG TAB PO (05:42)
[2017-12-21 08:19] LABS: AUTOMATED NEUTROPHIL # 12.8 TH/MM3 (1.8-7.7); BASOPHIL % 0.1 % (0.0-2.0); EOSINOPHIL # 0.1 TH/MM3 (0-0.4); EOSINOPHIL % 0.7 % (0.0-4.0); HEMATOCRIT 35.7 % (35.0-46.0); HEMOGLOBIN 11.6 GM/DL (11.6-15.3); LYMPH % 8.4 % (9.0-44.0); LYMPHOCYTE # 1.3 TH/MM3 (1.0-4.8); MEAN CELL VOLUME 87.3 FL (80.0-100.0); MEAN CORPUSCULAR HEMOGLOBIN 28.3 PG (27.0-34.0); MEAN CORPUSCULAR HGB CONC 32.4 % (32.0-36.0); MEAN PLATELET VOLUME 8.6 FL (7.0-11.0); MONO % 8.5 % (0.0-8.0); MONOCYTE # 1.3 TH/MM3 (0-0.9); NEUT % 82.3 % (16.0-70.0); PLATELET COUNT 292 TH/MM3 (150-450); RED BLOOD COUNT 4.08 MIL/MM3 (4.00-5.30); WHITE BLOOD COUNT 15.6 TH/MM3 (4.0-11.0)
[2017-12-21 08:21] LABS: APTT (PATIENT) 64.6 SEC (24.3-30.1)
[2017-12-21 08:25] LABS: HEMO FLAGS AUTO DIFF
[2017-12-21 08:38] LABS: ANION GAP 10 MEQ/L (5-15); BICARBONATE 23.4 MEQ/L (21.0-32.0); BLOOD UREA NITROGEN 63 MG/DL (7-18); CALCIUM 8.5 MG/DL (8.5-10.1); CHLORIDE 111 MEQ/L (98-107); CREATININE 1.17 MG/DL (0.50-1.00); GLOMERULAR FILTRATION RATE 46 ML/MIN (>89); GLUCOSE,RANDOM 107 MG/DL (74-106); POTASSIUM 5.1 MEQ/L (3.5-5.1); SODIUM (NA) 144 MEQ/L (136-145)
[2017-12-21] MEDS: FREE WATER G-TUBE ×2 (09:00→19:55)
[2017-12-21] MEDS: INCRUSE ELIPTA PO (09:00)
[2017-12-21] MEDS: BUDESONIDE-FORMOTEROL 160/4.5 MCG INHALER INH ×2 (09:00→20:49)
[2017-12-21] MEDS: ARTIFICIAL TEARS OPTH SOLN 15 ML BTL EACH EYE ×3 (09:00→15:30)
[2017-12-21] MEDS: DOCUSATE SODIUM 100 MG/10 ML UDC PO ×2 (09:00→19:54)
[2017-12-21 09:05] LABS: BANDS 5 % (0-6); LYMPHOCYTES 8 % (9-44); METAMYELOCYTES 4 % (0-1); MONOCYTES 6 % (0-8); MYELOCYTES 2 % (0-0); NEUTROPHIL # MANUAL DIFF 13.4 TH/MM3 (1.8-7.7); POLYS (SEG NEUTROPHILS) 75 % (16-70); WBC DIFF SAMPLE 100
[2017-12-21 09:06] LABS: PLATELET ESTIMATE SMEAR NORMAL (NORMAL); PLATELET MORPHOLOGY NORMAL (NORMAL); SCAN/DIFF FINAL DIFF MANUAL
[2017-12-21] MEDS: SENNOSIDES SYRUP 8.8 MG/5 ML CUP PO (09:11)
[2017-12-21] MEDS: DOCUSATE SODIUM 50 MG/SENNA 8.6 MG TAB PO ×2 (09:12→19:55)
[2017-12-21] MEDS: SODIUM CHLORIDE 0.9% FLUSH 10 ML FLUSH IV FLUSH ×2 (09:13→19:54)
[2017-12-21] MEDS: CHLORHEXIDINE 0.12% (ORAL KIT) 15 ML CUP MT ×2 (09:14→19:55)
[2017-12-21] MEDS: FAMOTIDINE 20 MG TAB PO ×2 (12:02→19:55)
[2017-12-21] MEDS: HEPARIN-D5W 25,000 U/250 ML 250 ML IV (14:09)
[2017-12-21] MEDS: PANTOPRAZOLE SODIUM 40 MG VIAL IV PUSH (20:57)
[2017-12-21 21:27] LABS: HEMATOCRIT 36.6 % (35.0-46.0); HEMOGLOBIN 11.9 GM/DL (11.6-15.3); MEAN CELL VOLUME 86.3 FL (80.0-100.0); MEAN CORPUSCULAR HGB CONC 32.5 % (32.0-36.0); PLATELET COUNT 291 TH/MM3 (150-450); RED BLOOD COUNT 4.25 MIL/MM3 (4.00-5.30); RED CELL DISTRIBUTION WIDTH 14.9 % (11.6-17.2); WHITE BLOOD COUNT 19.4 TH/MM3 (4.0-11.0)
[2017-12-21 21:28] LABS: HEMO FLAGS AUTO DIFF
[2017-12-21 22:10] LABS: BANDS 6 % (0-6); EOSINOPHILS 2 % (0-4); LYMPHOCYTES 15 % (9-44); METAMYELOCYTES 2 % (0-1); MONOCYTES 8 % (0-8); MYELOCYTES 2 % (0-0); NEUTROPHIL # MANUAL DIFF 14.6 TH/MM3 (1.8-7.7); POLYS (SEG NEUTROPHILS) 65 % (16-70); SCAN/DIFF FINAL DIFF MANUAL; WBC DIFF SAMPLE 100
[2017-12-21 22:11] LABS: PLATELET ESTIMATE SMEAR NORMAL (NORMAL); PLATELET MORPHOLOGY NORMAL (NORMAL)
[2017-12-22] MEDS: PROPOFOL 1000 MG/100 ML IV ×2 (00:01→03:45)
[2017-12-22] MEDS: diphenhydrAMINE HCL 50 MG/ML VIAL IV PUSH ×6 (00:02→22:00)
[2017-12-22] MEDS: hydrALAZINE HCL 50 MG TAB PO ×4 (00:02→22:01)
[2017-12-22] MEDS: METOCLOPRAMIDE HCL 10 MG/2 ML VIAL IV PUSH ×4 (00:02→22:01)
[2017-12-22] MEDS: MIDAZOLAM HCL 2 MG/2 ML VIAL IV PUSH (00:55)
[2017-12-22] MEDS: AZTREONAM INJ 1,000 MG in SODIUM CHLORIDE 0.9% INJ 100 ML IV ×3 (03:14→17:44)
[2017-12-22] MEDS: INSULIN NovoLIN REGULAR SUPPLEMENTAL SCALE SQ ×6 (03:48→20:00)
[2017-12-22] MEDS: CHLORHEXIDINE GLUCONATE 2 % 1 PACK (2 CLOTHS) TOP (03:49)
[2017-12-22] MEDS: LEVOTHYROXINE SODIUM 112 MCG TAB PO (05:06)
[2017-12-22 05:51] LABS: AUTOMATED NEUTROPHIL # 13.6 TH/MM3 (1.8-7.7); BASOPHIL # 0.1 TH/MM3 (0-0.2); BASOPHIL % 0.5 % (0.0-2.0); EOSINOPHIL # 0.2 TH/MM3 (0-0.4); EOSINOPHIL % 0.9 % (0.0-4.0); HEMATOCRIT 33.6 % (35.0-46.0); LYMPH % 11.2 % (9.0-44.0); MEAN CELL VOLUME 87.2 FL (80.0-100.0); MEAN CORPUSCULAR HEMOGLOBIN 28.6 PG (27.0-34.0); MEAN CORPUSCULAR HGB CONC 32.8 % (32.0-36.0); MEAN PLATELET VOLUME 8.7 FL (7.0-11.0); MONO % 11.1 % (0.0-8.0); NEUT % 76.3 % (16.0-70.0); PLATELET COUNT 260 TH/MM3 (150-450); RED BLOOD COUNT 3.85 MIL/MM3 (4.00-5.30); RED CELL DISTRIBUTION WIDTH 15.1 % (11.6-17.2); WHITE BLOOD COUNT 17.8 TH/MM3 (4.0-11.0)
[2017-12-22 05:54] LABS: HEMO FLAGS AUTO DIFF
[2017-12-22 06:19] LABS: ANION GAP 9 MEQ/L (5-15); BICARBONATE 23.5 MEQ/L (21.0-32.0); BLOOD UREA NITROGEN 57 MG/DL (7-18); CALCIUM 8.5 MG/DL (8.5-10.1); CHLORIDE 110 MEQ/L (98-107); CREATININE 1.02 MG/DL (0.50-1.00); GLOMERULAR FILTRATION RATE 54 ML/MIN (>89); GLUCOSE,RANDOM 102 MG/DL (74-106); SODIUM (NA) 142 MEQ/L (136-145)
[2017-12-22 07:51] LABS: BANDS 6 % (0-6); LYMPHOCYTES 7 % (9-44); METAMYELOCYTES 7 % (0-1); MONOCYTES 8 % (0-8); MYELOCYTES 4 % (0-0); NEUTROPHIL # MANUAL DIFF 15.1 TH/MM3 (1.8-7.7); POLYS (SEG NEUTROPHILS) 68 % (16-70); WBC DIFF SAMPLE 100
[2017-12-22 07:52] LABS: PLATELET ESTIMATE SMEAR NORMAL (NORMAL); PLATELET MORPHOLOGY NORMAL (NORMAL); SCAN/DIFF FINAL DIFF MANUAL
[2017-12-22] MEDS: FAMOTIDINE 20 MG TAB PO ×2 (07:53→21:59)
[2017-12-22] MEDS: ARTIFICIAL TEARS OPTH SOLN 15 ML BTL EACH EYE ×3 (07:53→17:45)
[2017-12-22] MEDS: methylPREDNISolone SOD SUCC 40 MG/1 ML VIAL IV PUSH ×2 (07:53→21:00)
[2017-12-22] MEDS: FREE WATER G-TUBE (07:53)
[2017-12-22] MEDS: PANTOPRAZOLE SODIUM 40 MG VIAL IV PUSH ×2 (07:54→21:59)
[2017-12-22] MEDS: SODIUM CHLORIDE 0.9% FLUSH 10 ML FLUSH IV FLUSH ×2 (07:54→21:00)
[2017-12-22] MEDS: DOCUSATE SODIUM 100 MG/10 ML UDC PO ×2 (07:55→21:59)
[2017-12-22] MEDS: DOCUSATE SODIUM 50 MG/SENNA 8.6 MG TAB PO ×2 (07:56→21:59)
[2017-12-22] MEDS: SENNOSIDES SYRUP 8.8 MG/5 ML CUP PO (07:56)
[2017-12-22] MEDS: CHLORHEXIDINE 0.12% (ORAL KIT) 15 ML CUP MT ×2 (08:00→20:00)
[2017-12-22] MEDS: BUDESONIDE-FORMOTEROL 160/4.5 MCG INHALER INH ×2 (09:00→21:00)
[2017-12-22] MEDS: INCRUSE ELIPTA PO (09:00)
[2017-12-22] MEDS: DILTIAZEM HCL 60 MG TAB PO ×4 (09:33→22:01)
[2017-12-22] MEDS: HEPARIN-D5W 25,000 U/250 ML 250 ML IV (12:19)
[2017-12-22 15:00] LABS: BLOOD GAS BASE EXCESS 2.2 mmol/L (-2-2); BLOOD GAS HCO3 26 mmol/L (22-26); BLOOD GAS METHEMOGLOBIN 1.5 % (0-2); BLOOD GAS O2 HGB SATURATION 92 % (90-100); BLOOD GAS OXYGEN CONTENT 15.2 Vol % (12.0-20.0); BLOOD GAS PCO2 41 mmHg (38-42); BLOOD GAS PO2 71 mmHg (61-120); BLOOD GAS TOTAL HGB 11.7 G/DL (12.0-16.0); CRITICAL VALUE NO; DRAW SITE RT RADIAL; FIO2 45 %; NUMBER OF ARTERIAL PUNCTURES 1; OXYGEN DEVICE VENTILATOR; STAT NO; TEMP CORR TO 98.6; ULNAR PULSE PRESENT
[2017-12-22] MEDS: RESP: ALBUTEROL 2.5 MG/IPRATROPIUM 0.5 MG NEB (PRN) NEB (15:22)
[2017-12-22] MEDS: RESP: ALBUTEROL 2.5 MG/IPRATROPIUM 0.5 MG NEB (SCH) NEB ×3 (15:23→23:10)
[2017-12-23] MEDS: diphenhydrAMINE HCL 50 MG/ML VIAL IV PUSH ×2 (00:30→04:30)
[2017-12-23] MEDS: AZTREONAM INJ 1,000 MG in SODIUM CHLORIDE 0.9% INJ 100 ML IV ×3 (02:00→18:15)
[2017-12-23] MEDS: CHLORHEXIDINE GLUCONATE 2 % 1 PACK (2 CLOTHS) TOP (04:00)
[2017-12-23] MEDS: INSULIN NovoLIN REGULAR SUPPLEMENTAL SCALE SQ ×6 (04:00→20:00)
[2017-12-23] MEDS: RESP: ALBUTEROL 2.5 MG/IPRATROPIUM 0.5 MG NEB (SCH) NEB ×5 (04:08→20:00)
[2017-12-23 04:21] LABS: AUTOMATED NEUTROPHIL # 14.1 TH/MM3 (1.8-7.7); BASOPHIL # 0.1 TH/MM3 (0-0.2); BASOPHIL % 0.3 % (0.0-2.0); EOSINOPHIL # 0.4 TH/MM3 (0-0.4); EOSINOPHIL % 1.9 % (0.0-4.0); HEMATOCRIT 33.1 % (35.0-46.0); HEMOGLOBIN 10.9 GM/DL (11.6-15.3); LYMPH % 18.7 % (9.0-44.0); LYMPHOCYTE # 3.8 TH/MM3 (1.0-4.8); MEAN CELL VOLUME 85.1 FL (80.0-100.0); MEAN CORPUSCULAR HGB CONC 32.9 % (32.0-36.0); MEAN PLATELET VOLUME 8.8 FL (7.0-11.0); MONO % 10.9 % (0.0-8.0); MONOCYTE # 2.2 TH/MM3 (0-0.9); NEUT % 68.2 % (16.0-70.0); PLATELET COUNT 256 TH/MM3 (150-450); RED BLOOD COUNT 3.89 MIL/MM3 (4.00-5.30); RED CELL DISTRIBUTION WIDTH 14.4 % (11.6-17.2); WHITE BLOOD COUNT 20.6 TH/MM3 (4.0-11.0)
[2017-12-23 04:38] LABS: HEMO FLAGS AUTO DIFF
[2017-12-23] MEDS: DILTIAZEM HCL 60 MG TAB PO ×4 (04:40→22:43)
[2017-12-23 04:41] LABS: ANION GAP 8 MEQ/L (5-15); BICARBONATE 27.9 MEQ/L (21.0-32.0); BLOOD UREA NITROGEN 39 MG/DL (7-18); CALCIUM 8.3 MG/DL (8.5-10.1); CHLORIDE 107 MEQ/L (98-107); CREATININE 0.88 MG/DL (0.50-1.00); GLOMERULAR FILTRATION RATE 64 ML/MIN (>89); GLUCOSE,RANDOM 68 MG/DL (74-106); POTASSIUM 4.3 MEQ/L (3.5-5.1); SODIUM (NA) 143 MEQ/L (136-145)
[2017-12-23] MEDS: LEVOTHYROXINE SODIUM 112 MCG TAB PO (04:41)
[2017-12-23] MEDS: HEPARIN-D5W 25,000 U/250 ML 250 ML IV (04:48)
[2017-12-23 06:57] LABS: BANDS 2 % (0-6); EOSINOPHILS 1 % (0-4); LYMPHOCYTES 13 % (9-44); METAMYELOCYTES 13 % (0-1); MONOCYTES 10 % (0-8); MYELOCYTES 3 % (0-0); NEUTROPHIL # MANUAL DIFF 15.7 TH/MM3 (1.8-7.7); PLATELET ESTIMATE SMEAR NORMAL (NORMAL); PLATELET MORPHOLOGY NORMAL (NORMAL); POLYS (SEG NEUTROPHILS) 58 % (16-70); SCAN/DIFF FINAL DIFF MANUAL; WBC DIFF SAMPLE 100
[2017-12-23] MEDS: CHLORHEXIDINE 0.12% (ORAL KIT) 15 ML CUP MT ×2 (08:00→20:00)
[2017-12-23] MEDS: BUDESONIDE-FORMOTEROL 160/4.5 MCG INHALER INH ×2 (09:00→21:00)
[2017-12-23] MEDS: ARTIFICIAL TEARS OPTH SOLN 15 ML BTL EACH EYE ×3 (09:00→18:16)
[2017-12-23] MEDS: SENNOSIDES SYRUP 8.8 MG/5 ML CUP PO (09:00)
[2017-12-23] MEDS: DOCUSATE SODIUM 100 MG/10 ML UDC PO ×2 (09:00→22:16)
[2017-12-23] MEDS: INCRUSE ELIPTA PO (09:00)
[2017-12-23] MEDS: methylPREDNISolone SOD SUCC 40 MG/1 ML VIAL IV PUSH ×2 (11:33→22:43)
[2017-12-23] MEDS: hydrALAZINE HCL 50 MG TAB PO ×3 (11:33→22:17)
[2017-12-23] MEDS: FAMOTIDINE 20 MG TAB PO ×2 (11:33→22:17)
[2017-12-23] MEDS: DOCUSATE SODIUM 50 MG/SENNA 8.6 MG TAB PO ×2 (11:33→22:17)
[2017-12-23] MEDS: SODIUM CHLORIDE 0.9% FLUSH 10 ML FLUSH IV FLUSH ×2 (11:34→22:18)
[2017-12-23] MEDS: DEXT 5%-NACL 0.9% 1000 ML INJ 1,000 ML IV (11:37)
[2017-12-23] MEDS: RIVAROXABAN 20 MG TAB PO (15:29)
[2017-12-24] MEDS: AZTREONAM INJ 1,000 MG in SODIUM CHLORIDE 0.9% INJ 100 ML IV ×2 (01:20→09:14)
[2017-12-24] MEDS: DEXT 5%-NACL 0.9% 1000 ML INJ 1,000 ML IV (03:30)
[2017-12-24] MEDS: INSULIN NovoLIN REGULAR SUPPLEMENTAL SCALE SQ ×6 (03:38→20:14)
[2017-12-24] MEDS: CHLORHEXIDINE GLUCONATE 2 % 1 PACK (2 CLOTHS) TOP (04:00)
[2017-12-24] MEDS: RESP: ALBUTEROL 2.5 MG/IPRATROPIUM 0.5 MG NEB (SCH) NEB ×7 (05:04→23:44)
[2017-12-24] MEDS: DILTIAZEM HCL 60 MG TAB PO ×3 (05:46→18:08)
[2017-12-24] MEDS: LEVOTHYROXINE SODIUM 112 MCG TAB PO (05:46)
[2017-12-24 06:16] LABS: AUTOMATED NEUTROPHIL # 15.2 TH/MM3 (1.8-7.7); BASOPHIL # 0.1 TH/MM3 (0-0.2); BASOPHIL % 0.3 % (0.0-2.0); EOSINOPHIL # 0.1 TH/MM3 (0-0.4); EOSINOPHIL % 0.6 % (0.0-4.0); HEMATOCRIT 31.3 % (35.0-46.0); HEMOGLOBIN 10.4 GM/DL (11.6-15.3); LYMPH % 14.1 % (9.0-44.0); LYMPHOCYTE # 2.8 TH/MM3 (1.0-4.8); MEAN CELL VOLUME 84.8 FL (80.0-100.0); MEAN CORPUSCULAR HEMOGLOBIN 28.2 PG (27.0-34.0); MEAN CORPUSCULAR HGB CONC 33.3 % (32.0-36.0); MEAN PLATELET VOLUME 8.6 FL (7.0-11.0); MONO % 9.1 % (0.0-8.0); MONOCYTE # 1.8 TH/MM3 (0-0.9); NEUT % 75.9 % (16.0-70.0); PLATELET COUNT 245 TH/MM3 (150-450); RED CELL DISTRIBUTION WIDTH 14.6 % (11.6-17.2)
[2017-12-24 06:25] LABS: HEMO FLAGS AUTO DIFF
[2017-12-24 06:36] LABS: ANION GAP 10 MEQ/L (5-15); BICARBONATE 27.5 MEQ/L (21.0-32.0); BLOOD UREA NITROGEN 26 MG/DL (7-18); CALCIUM 8.5 MG/DL (8.5-10.1); CHLORIDE 103 MEQ/L (98-107); CREATININE 0.82 MG/DL (0.50-1.00); GLOMERULAR FILTRATION RATE 69 ML/MIN (>89); GLUCOSE,RANDOM 90 MG/DL (74-106); POTASSIUM 3.8 MEQ/L (3.5-5.1); SODIUM (NA) 140 MEQ/L (136-145)
[2017-12-24] MEDS: CHLORHEXIDINE 0.12% (ORAL KIT) 15 ML CUP MT ×2 (08:00→20:00)
[2017-12-24] MEDS: INCRUSE ELIPTA PO (09:00)
[2017-12-24] MEDS: hydrALAZINE HCL 50 MG TAB PO ×2 (09:13→16:36)
[2017-12-24] MEDS: DOCUSATE SODIUM 50 MG/SENNA 8.6 MG TAB PO ×2 (09:13→20:02)
[2017-12-24] MEDS: DOCUSATE SODIUM 100 MG/10 ML UDC PO ×2 (09:14→20:02)
[2017-12-24] MEDS: FAMOTIDINE 20 MG TAB PO ×2 (09:14→20:01)
[2017-12-24] MEDS: SENNOSIDES SYRUP 8.8 MG/5 ML CUP PO (09:14)
[2017-12-24] MEDS: methylPREDNISolone SOD SUCC 40 MG/1 ML VIAL IV PUSH (09:14)
[2017-12-24] MEDS: BUDESONIDE-FORMOTEROL 160/4.5 MCG INHALER INH ×2 (09:15→20:03)
[2017-12-24] MEDS: SODIUM CHLORIDE 0.9% FLUSH 10 ML FLUSH IV FLUSH ×2 (09:15→20:01)
[2017-12-24] MEDS: ARTIFICIAL TEARS OPTH SOLN 15 ML BTL EACH EYE ×3 (09:15→16:59)
[2017-12-24 09:17] LABS: BANDS 13 % (0-6); LYMPHOCYTES 13 % (9-44); METAMYELOCYTES 5 % (0-1); MONOCYTES 5 % (0-8); NEUTROPHIL # MANUAL DIFF 16.4 TH/MM3 (1.8-7.7); PLATELET ESTIMATE SMEAR NORMAL (NORMAL); PLATELET MORPHOLOGY NORMAL (NORMAL); POLYS (SEG NEUTROPHILS) 64 % (16-70); SCAN/DIFF FINAL DIFF MANUAL; WBC DIFF SAMPLE 100
[2017-12-24] MEDS: RIVAROXABAN 20 MG TAB PO (12:25)
[2017-12-24] MEDS: predniSONE 20 MG TAB PO (13:37)
[2017-12-24] MEDS: ONDANSETRON HCL 4 MG/2 ML VIAL IV PUSH (16:36)
[2017-12-24] MEDS: ACETAMINOPHEN 325 MG TAB PO (20:02)
[2017-12-24] MEDS: cloNIDine HCL 0.1 MG TAB PO (21:55)
[2017-12-25] MEDS: DILTIAZEM HCL 60 MG TAB PO ×4 (00:13→17:51)
[2017-12-25] MEDS: hydrALAZINE HCL 50 MG TAB PO ×3 (00:13→16:04)
[2017-12-25] MEDS: INSULIN NovoLIN REGULAR SUPPLEMENTAL SCALE SQ ×6 (00:20→19:57)
[2017-12-25] MEDS: RESP: ALBUTEROL 2.5 MG/IPRATROPIUM 0.5 MG NEB (SCH) NEB ×6 (03:09→23:58)
[2017-12-25] MEDS: LEVOTHYROXINE SODIUM 112 MCG TAB PO (05:27)
[2017-12-25] MEDS: CHLORHEXIDINE GLUCONATE 2 % 1 PACK (2 CLOTHS) TOP (05:28)
[2017-12-25] MEDS: CHLORHEXIDINE 0.12% (ORAL KIT) 15 ML CUP MT ×2 (08:00→19:57)
[2017-12-25] MEDS: predniSONE 20 MG TAB PO (08:55)
[2017-12-25] MEDS: ARTIFICIAL TEARS OPTH SOLN 15 ML BTL EACH EYE ×3 (08:55→16:05)
[2017-12-25] MEDS: FAMOTIDINE 20 MG TAB PO ×2 (08:55→19:56)
[2017-12-25] MEDS: BUDESONIDE-FORMOTEROL 160/4.5 MCG INHALER INH ×2 (08:55→19:57)
[2017-12-25] MEDS: SENNOSIDES SYRUP 8.8 MG/5 ML CUP PO (08:56)
[2017-12-25] MEDS: SODIUM CHLORIDE 0.9% FLUSH 10 ML FLUSH IV FLUSH ×2 (08:56→20:02)
[2017-12-25] MEDS: DOCUSATE SODIUM 100 MG/10 ML UDC PO ×2 (08:56→19:56)
[2017-12-25] MEDS: DOCUSATE SODIUM 50 MG/SENNA 8.6 MG TAB PO ×2 (08:56→19:57)
[2017-12-25] MEDS: INCRUSE ELIPTA PO (08:57)
[2017-12-25 10:53] LABS: HEMATOCRIT 30.5 % (35.0-46.0); MEAN CELL VOLUME 86.6 FL (80.0-100.0); MEAN CORPUSCULAR HEMOGLOBIN 28.5 PG (27.0-34.0); MEAN CORPUSCULAR HGB CONC 32.9 % (32.0-36.0); MEAN PLATELET VOLUME 9.1 FL (7.0-11.0); PLATELET COUNT 223 TH/MM3 (150-450); RED BLOOD COUNT 3.52 MIL/MM3 (4.00-5.30); RED CELL DISTRIBUTION WIDTH 14.7 % (11.6-17.2); REVIEW FLAG FINAL; WHITE BLOOD COUNT 18.5 TH/MM3 (4.0-11.0)
[2017-12-25] MEDS: RIVAROXABAN 20 MG TAB PO (13:31)
[2017-12-25 14:22] LABS: B-TYPE NATRIURETIC PEPTIDE 119 PG/ML (0-100)
[2017-12-25 14:40] LABS: ANION GAP 9 MEQ/L (5-15); BICARBONATE 27.9 MEQ/L (21.0-32.0); BLOOD UREA NITROGEN 24 MG/DL (7-18); CALCIUM 8.6 MG/DL (8.5-10.1); CHLORIDE 102 MEQ/L (98-107); CREATININE 0.82 MG/DL (0.50-1.00); GLOMERULAR FILTRATION RATE 69 ML/MIN (>89); GLUCOSE,RANDOM 100 MG/DL (74-106); POTASSIUM 3.7 MEQ/L (3.5-5.1); SODIUM (NA) 139 MEQ/L (136-145)
[2017-12-25] MEDS: FUROSEMIDE 20 MG/2 ML VIAL IV PUSH (16:04)
[2017-12-25] MEDS: cloNIDine HCL 0.1 MG TAB PO (16:04)
[2017-12-26] MEDS: DILTIAZEM HCL 60 MG TAB PO ×4 (00:25→18:01)
[2017-12-26] MEDS: hydrALAZINE HCL 50 MG TAB PO ×4 (00:25→18:01)
[2017-12-26] MEDS: INSULIN NovoLIN REGULAR SUPPLEMENTAL SCALE SQ ×6 (00:27→20:00)
[2017-12-26] MEDS: ONDANSETRON HCL 4 MG/2 ML VIAL IV PUSH (02:01)
[2017-12-26] MEDS: ACETAMINOPHEN 325 MG TAB PO (02:17)
[2017-12-26] MEDS: RESP: ALBUTEROL 2.5 MG/IPRATROPIUM 0.5 MG NEB (SCH) NEB ×3 (04:00→11:12)
[2017-12-26] MEDS: LEVOTHYROXINE SODIUM 112 MCG TAB PO (05:33)
[2017-12-26] MEDS: CHLORHEXIDINE GLUCONATE 2 % 1 PACK (2 CLOTHS) TOP (05:33)
[2017-12-26] MEDS: CHLORHEXIDINE 0.12% (ORAL KIT) 15 ML CUP MT ×2 (08:00→20:00)
[2017-12-26] MEDS: SENNOSIDES SYRUP 8.8 MG/5 ML CUP PO (09:00)
[2017-12-26] MEDS: INCRUSE ELIPTA PO (09:00)
[2017-12-26] MEDS: DOCUSATE SODIUM 100 MG/10 ML UDC PO ×2 (09:00→21:00)
[2017-12-26] MEDS: BUDESONIDE-FORMOTEROL 160/4.5 MCG INHALER INH ×2 (09:47→21:18)
[2017-12-26] MEDS: ARTIFICIAL TEARS OPTH SOLN 15 ML BTL EACH EYE ×3 (09:47→18:05)
[2017-12-26] MEDS: SODIUM CHLORIDE 0.9% FLUSH 10 ML FLUSH IV FLUSH ×2 (09:48→21:17)
[2017-12-26] MEDS: predniSONE 20 MG TAB PO (09:48)
[2017-12-26] MEDS: DOCUSATE SODIUM 50 MG/SENNA 8.6 MG TAB PO ×2 (09:49→21:00)
[2017-12-26] MEDS: FAMOTIDINE 20 MG TAB PO ×2 (09:49→21:17)
[2017-12-26] MEDS: RIVAROXABAN 20 MG TAB PO (12:31)
[2017-12-26] MEDS: RESP: ALBUTEROL 2.5 MG/IPRATROPIUM 0.5 MG NEB (PRN) NEB (17:03)
[2017-12-26] MEDS: FUROSEMIDE 20 MG/2 ML VIAL IV PUSH (18:04)
[2017-12-26] MEDS: cloNIDine HCL 0.1 MG TAB PO (21:28)
[2017-12-27] MEDS: hydrALAZINE HCL 50 MG TAB PO ×2 (01:00→08:22)
[2017-12-27] MEDS: INSULIN NovoLIN REGULAR SUPPLEMENTAL SCALE SQ ×4 (04:00→11:54)
[2017-12-27] MEDS: CHLORHEXIDINE GLUCONATE 2 % 1 PACK (2 CLOTHS) TOP (04:00)
[2017-12-27] MEDS: DILTIAZEM HCL 60 MG TAB PO ×3 (04:13→11:54)
[2017-12-27] MEDS: LEVOTHYROXINE SODIUM 112 MCG TAB PO (06:13)
[2017-12-27 06:47] LABS: ANION GAP 8 MEQ/L (5-15); BICARBONATE 31.9 MEQ/L (21.0-32.0); BLOOD UREA NITROGEN 21 MG/DL (7-18); CALCIUM 8.8 MG/DL (8.5-10.1); CHLORIDE 99 MEQ/L (98-107); CREATININE 1.01 MG/DL (0.50-1.00); GLOMERULAR FILTRATION RATE 55 ML/MIN (>89); GLUCOSE,RANDOM 66 MG/DL (74-106); POTASSIUM 3.2 MEQ/L (3.5-5.1); SODIUM (NA) 139 MEQ/L (136-145)
[2017-12-27] MEDS: CHLORHEXIDINE 0.12% (ORAL KIT) 15 ML CUP MT (07:37)
[2017-12-27] MEDS: predniSONE 20 MG TAB PO (08:22)
[2017-12-27] MEDS: DOCUSATE SODIUM 50 MG/SENNA 8.6 MG TAB PO (08:22)
[2017-12-27] MEDS: FUROSEMIDE 20 MG/2 ML VIAL IV PUSH (08:22)
[2017-12-27] MEDS: BUDESONIDE-FORMOTEROL 160/4.5 MCG INHALER INH (08:23)
[2017-12-27] MEDS: ARTIFICIAL TEARS OPTH SOLN 15 ML BTL EACH EYE ×2 (08:23→12:12)
[2017-12-27] MEDS: FAMOTIDINE 20 MG TAB PO (08:23)
[2017-12-27] MEDS: SENNOSIDES SYRUP 8.8 MG/5 ML CUP PO (08:23)
[2017-12-27] MEDS: SODIUM CHLORIDE 0.9% FLUSH 10 ML FLUSH IV FLUSH (08:23)
[2017-12-27] MEDS: INCRUSE ELIPTA PO (08:23)
[2017-12-27] MEDS: DOCUSATE SODIUM 100 MG/10 ML UDC PO (08:23)
[2017-12-27] MEDS: POTASSIUM CHLORIDE 20 MEQ CONTROLLED RELEASE TAB PO (11:54)
[2017-12-27] MEDS: RIVAROXABAN 20 MG TAB PO (11:54)
[2017-12-27] MEDS ORDERED: FUROSEMIDE 20 MG TAB PO (18:00)
[2017-12-27] MEDS ORDERED: POTASSIUM CHLORIDE 20 MEQ CONTROLLED RELEASE TAB PO (21:00)
== END 2017-12-27 16:45 | DRG 915 ==
LOC: HIME 12-14 08:55 → PHED 22:36 → PHICU 12-13 01:10 → N07B 12-24 14:29 → PHEDA 23:18
PROC: 5A1955Z Respiratory Ventilation, Greater than 96 Consecutive Hours (ICD-10-PCS; principal; 2017-12-12)
PROC: 0BH17EZ Insertion of Endotracheal Airway into Trachea, Via Natural or Artificial Opening (ICD-10-PCS; 2017-12-12)
PROC: 0T9B70Z Drainage of Bladder with Drainage Device, Via Natural or Artificial Opening (ICD-10-PCS; 2017-12-12)
PROC: 0D9670Z Drainage of Stomach with Drainage Device, Via Natural or Artificial Opening (ICD-10-PCS; 2017-12-12)
DX: T78.3XXA Angioneurotic edema, initial encounter (principal); J96.01 Acute respiratory failure with hypoxia; J18.9 Pneumonia, unspecified organism; Z99.11 Dependence on respirator [ventilator] status; Z68.41 Body mass index [BMI] 40.0-44.9, adult; E66.01 Morbid (severe) obesity due to excess calories; R13.10 Dysphagia, unspecified; J44.9 Chronic obstructive pulmonary disease, unspecified; Z78.1 Physical restraint status; I10 Essential (primary) hypertension; T88.4XXA Failed or difficult intubation, initial encounter; E03.9 Hypothyroidism, unspecified; K40.90 Unilateral inguinal hernia, without obstruction or gangrene, not specified as recurrent; Z79.01 Long term (current) use of anticoagulants; Z86.711 Personal history of pulmonary embolism; Z86.718 Personal history of other venous thrombosis and embolism; E78.00 Pure hypercholesterolemia, unspecified; F17.200 Nicotine dependence, unspecified, uncomplicated; T38.0X5A Adverse effect of glucocorticoids and synthetic analogues, initial encounter; D72.829 Elevated white blood cell count, unspecified
CPT/HCPCS: 31500; 36600; 70490; 71045; 71046; 74018; 76937; 80048; 80053; 81001; 82805; 82948; 83735; 83880; 83883; 84100; 84443; 85007; 85025; 85027; 85610; 85730; 87040; 87070; 87086; 87205; 87641; 92526-GN; 92610-GN; 93306; 94002; 94003; 94150; 94640; 94664; 96372; 96374; 96375; 97110-GP; 97116-GP; 97162-GP; 97167-GO; 97530-GP; 99291-25